=== PATIENT | male | born 1980 | race Caucasian/White ===

== ENCOUNTER 2024-10-11 11:18 | Inpatient (IN) | payer OTHER ==
[~2024-10-11] VITALS: Ht 180.3 cm; Wt 122.7 kg
[2024-10-11] VITALS (7 sets, daily range): BP systolic 136–151; BP diastolic 91–99; PULSE 93–105; RESP 17–18; TEMP 98.5–98.9; O2SAT 96–99
[2024-10-11] MEDS: LACTATED RINGERS 1000ML 1,000 ML IV ONE (11:53)
[2024-10-11 12:25] LABS: IMMATURE GRANULOCYTE ABSOLUTE 0.03 K/uL (0-1); NUCLEATED RED BLOOD CELLS 0.0 % (0.0-0.19); PLATELET COUNT (AUTO) 277 K/uL (130-400); RED BLOOD CELL COUNT(AUTO) 5.35 MIL/uL (4.50-6.20); RED CELL DISTRIBUTION WIDTH 12.6 % (11.0-15.5); WHITE BLOOD COUNT (AUTO) 8.4 K/uL (4.8-10.8)
[2024-10-11 12:31] LABS: CREATININE 1.0 mg/dL (0.5-1.3); GLOMERULAR FILTR. RATE CALC 95 mL/min (>90); GLUCOSE,RANDOM 109 mg/dL (70-105); SODIUM SERUM 137 mmol/L (136-145); UREA NITROGEN, BLOOD 18 mg/dL (7-18)
[2024-10-11 12:33] LABS: INR 0.97 (0.85-1.15)
--- NOTE | 2024-10-11 12:38 | HMCIMG ---
EXAM: CR Chest, 1 View. CLINICAL HISTORY: SYNCOPE COMPARISON: None provided. FINDINGS: LUNGS: The lungs show no infiltrate or other acute finding. PLEURAL SPACES: No evidence of pleural effusion or pneumothorax. MEDIASTINUM: The heart is enlarged. BONES: No acute osseous abnormality. IMPRESSION: Cardiomegaly. Clear lungs. /[place]
[2024-10-11 12:48] LABS: ALCOHOL, BLOOD < 3 mg/dL (0-10)
[2024-10-11 12:49] LABS: CREATINE KINASE, TOTAL 743 U/L (21-232)
--- NOTE | 2024-10-11 12:59 | HMCIMG ---
EXAM: CT Head Without IV contrast. CLINICAL HISTORY: dizzy/syncope TECHNIQUE: Axial computed tomography images of the head/brain without intravenous contrast. COMPARISON: None provided. FINDINGS: BRAIN: No evidence of acute hemorrhage. No mass lesion. No CT evidence for acute territorial infarct. No midline shift or extra-axial collections. VENTRICLES: No hydrocephalus. ORBITS: The orbits are unremarkable. SINUSES AND MASTOIDS: The paranasal sinuses and mastoid air cells are clear. BONES: No fracture. SOFT TISSUES: Unremarkable. IMPRESSION: 1. No acute intracranial findings. /[place]
[2024-10-11 13:07] LABS: APPEARANCE,URINE CLEAR (CLEAR); GLUCOSE, URINE (UA) NEGATIVE (NEGATIVE); LEUKOCYTE ESTERASE ,URINE NEGATIVE Leu/uL (NEGATIVE); NITRATE,URINE NEGATIVE (NEGATIVE); OCCULT BLOOD,URINE NEGATIVE (NEGATIVE)
[2024-10-11 13:09] LABS: ADD UA MICROSCOPIC NO
[2024-10-11 13:14] LABS: AMPHET/METH SCREEN,URINE NEGATIVE (NEGATIVE); BARBITURATE SCREEN, URINE NEGATIVE (NEGATIVE); CANNABINOID SCREEN,URINE NEGATIVE (NEGATIVE); COCAINE SCREEN,URINE NEGATIVE (NEGATIVE)
[2024-10-11] MEDS: LACTATED RINGERS 1000ML IV ONE (13:22)
--- NOTE | 2024-10-11 13:31 | ERN ---
General Chief Complaint: Syncope Stated Complaint: SYNCOPE X2 Time Seen by MD: 11:19 History of Present Illness Initial Comments 44-year-old male, history of anxiety, who presents for syncopal episode today. Patient was at home cooking breakfast. He was sitting in the chair. He reports that he had a syncopal episode which was unprovoked lasted about 15 seconds. He reports that he thinks he had a 2nd one as well. He had no falls or trauma. Did not bite his tongue. He denies seizure activity. Denies incontinence. He denies any palpitations or cardiac symptoms prior. Denies any drug or alcohol abuse. He reports he has never had syncopal episodes before. He does report that over the last year so he has had left-sided face pain, left retro-orbital pain and left ear tingling. He had a CT maxillofacial with his primary provider and was told he had sinusitis. He has been using a Neti pot and taking decongestants and antibiotics. He is pending an evaluation by Neurology and ENT. He is unsure if these are related. Allergies: Coded Allergies: iodine (Unverified Allergy, Intermediate, HIVES, 10/11/24) metoclopramide (Unverified Allergy, Intermediate, RASH, 10/11/24) Home Meds Reported Medications Lisinopril (Lisinopril) 20 Mg Tablet, 1.5 TAB PO DAILY for 30 Days, #30 TAB 0 Refills 10/11/24 Past Medical History Past Medical History: Hypertension, Other Medical History Other: ASCITES Past Surgical History: Other ROS Dictation CONSTITUTIONAL: No chills, no fever, no weakness, no diaphoresis, no malaise. HEAD/FACE: No signs of trauma. EENT: No eye pain, no blurred vision, no tearing, no double vision, no ear pain, no ear discharge, no nose pain, no nasal congestion, no throat pain, no throat swelling, no mouth pain. RESPIRATORY: No cough, no orthopnea, no SOB, no stridor, no wheezing. CARDIOVASCULAR: Syncope GASTROINTESTINAL/ABDOMINAL: No abdominal pain, no constipation, no diarrhea, no nausea, no vomiting. GENITOURINARY: No abnormal discharge, no dysuria, no frequent urination, no hematuria. No complaints of pain in the genitals. MUSCULOSKELETAL: No back pain, no gout, no joint pain, no joint swelling, no muscle pain, no muscle stiffness, no neck pain. INTEGUMENTARY: No change in color, no change in hair/nails, no dryness, no lesion, no lumps, no rash. NEUROLOGICAL/PSYCH: No anxiety, not depressed, no emotional problem, no headache, no numbness, no pre-existing deficit, no history of seizures, no tremors, no weakness. HEMATOLOGIC/LYMPHATIC: Not anemic, no history of blood clots, no apparent bleeding, no bruising, glands not swollen. All Systems Negative, Except as Noted. Physical Exam Physical Exam Dictation VITAL SIGNS: Reviewed. GENERAL APPEARANCE: Alert, oriented x3, no acute distress, obese. HEAD AND FACE: Non-traumatic. EYES: PERRL, pink conjunctivas, eyelid no trauma, anterior chamber clear. EARS: Pinnas intact and no signs of trauma or erythema. Ear canals clear and no discharge. TMs no erythema. NOSE: No discharge, no bleeding. OROPHARYNX: Mouth normal, teeth no caries, tongue pink. Pharynx clear, no erythema. Tonsils no exudates, no abscesses noted. Mucous membrane moist. NECK: Supple, non-tender, no thyromegaly, no masses, no JVD, no bruits. BREAST: Deferred. CHEST: No tenderness, no crepitus, no paradoxical movement, no retractions. LUNGS: Clear, well-ventilated, symmetric, no rales, no wheezing, no rhonchi, no stridor, good breath sounds bilaterally. HEART: Regular rate, regular rhythm, no murmur, no gallops. VASCULAR: No peripheral edema. ABDOMEN: Soft, positive bowel sounds, nondistended, no guarding, nontender, no rebound, no masses no hepatomegaly, no splenomegaly, no Ridley's sign, no hernias. RECTAL: Deferred. GENITAL: Deferred. NEUROLOGICAL: Normal speech, gross motor function intact, gross sensory function intact. MUSCULOSKELETAL: Neck nontender, full range of motion, back nontender, full range of motion. EXTREMITIES: Nontender, full range of motion. SKIN: Color pink, dry, no turgor, no rash, no lacerations, no abrasions, no contusions. LYMPHATICS: Deferred. Results Laboratory and Microbiology Lab and Micro Result Laboratory Tests Test 10/11/24 12:13 10/11/24 12:52 White Blood Count 8.4 K/uL (4.8-10.8) Red Blood Count 5.35 MIL/uL (4.50-6.20) Hemoglobin 15.8 g/dL (14.0-18.0) Hematocrit 47.3 % (42-54) Mean Corpuscular Volume 88.4 fL (79-99) Mean Corpuscular Hemoglobin 29.5 pg (27.0-33.0) Mean Corpuscular Hemoglobin Concent 33.4 g/dL (32.0-36.0) Red Cell Distribution Width 12.6 % (11.0-15.5) Platelet Count 277 K/uL (130-400) Mean Platelet Volume 10.1 fL (7.5-10.5) Immature Granulocyte % (Auto) 0.4 % (0-1) Neutrophils (%) (Auto) 78.1 % (40.0-77.0) H Lymphocytes (%) (Auto) 11.9 % (21.0-51.0) L Monocytes (%) (Auto) 7.8 % (3.0-13.0) Eosinophils (%) (Auto) 1.4 % (0.0-8.0) Basophils (%) (Auto) 0.4 % (0.0-5.0) Neutrophils # (Auto) 6.6 K/uL (1.8-7.7) Lymphocytes # (Auto) 1.0 K/uL (1.0-4.8) Monocytes # (Auto) 0.7 K/uL (0.1-1.0) Eosinophils # (Auto) 0.12 K/uL (0.00-0.70) Basophils # (Auto) 0.03 K/uL (0.00-0.20) Absolute Immature Granulocyte (auto 0.03 K/uL (0-1) Nucleated Red Blood Cells 0.0 % (0.0-0.19) Erythrocyte Sedimentation Rate 8 MM/HR (0-15) Prothrombin Time 10.3 SEC (9.6-11.6) Prothromb Time International Ratio 0.97 (0.85-1.15) Activated Partial Thromboplast Time 28.2 SEC (26.3-35.5) D-Dimer Quantitative (PE/DVT) 158 ng/mL (0-500) Sodium Level 137 mmol/L (136-145) Potassium Level 4.4 mmol/L (3.5-5.1) Chloride Level 102 mmol/L (101-111) Carbon Dioxide Level 28 mmol/L (21-32) Blood Urea Nitrogen 18 mg/dL (7-18) Creatinine 1.0 mg/dL (0.5-1.3) Glomerular Filtration Rate Calc 95 mL/min (>90) Random Glucose 109 mg/dL (70-105) H Hemoglobin A1c 5.5 % (4.0-6.0) Estimated Average Glucose (eAG) 111 mg/dL (70-126) Total Calcium 8.4 mg/dL (8.5-10.1) L Magnesium Level 1.80 mg/dL (1.80-2.40) Total Bilirubin 0.6 mg/dL (0.2-1.0) Direct Bilirubin 0.1 mg/dL (0.0-0.3) Aspartate Amino Transf (AST/SGOT) 23 U/L (10-37) Alanine Aminotransferase (ALT/SGPT) 53 U/L (12-78) Alkaline Phosphatase 60 U/L (50-136) Lactate Dehydrogenase 189 U/L (81-234) Total Creatine Kinase 743 U/L (21-232) *H Troponin I High Sensitivity < 4.0 ng/L (4-75) L C-Reactive Protein, Quantitative 5.70 mg/L (0.5-3.0) H B-Type Natriuretic Peptide < 5 pg/mL (0-100) Total Protein 6.9 g/dL (6.0-8.3) Albumin 3.5 g/dL (3.5-5.0) Thyroid Stimulating Hormone (TSH) 0.94 uIU/mL (0.36-3.74) Serum Alcohol < 3 mg/dL (0-10) Urine Color LIGHT-YELLOW (YELLOW) Urine Appearance CLEAR (CLEAR) Urine pH 7.0 (5.0-8.0) Urine Specific [place] 1.024 (1.001-1.031) Urine Protein NEGATIVE mg/dL (NEGATIVE) Urine Glucose (UA) NEGATIVE mg/dL (NEGATIVE) Urine Ketones NEGATIVE mg/dL (NEGATIVE) Urine Occult Blood NEGATIVE (NEGATIVE) Urine Nitrate NEGATIVE (NEGATIVE) Urine Bilirubin NEGATIVE mg/dL (NEGATIVE) Urine Urobilinogen 0.2 mg/dL (0.2-1.0) Urine Leukocyte Esterase NEGATIVE [place]/uL Urine Opiates Screen NEGATIVE (NEGATIVE) Urine Barbiturates Screen NEGATIVE (NEGATIVE) Urine Phencyclidine Screen NEGATIVE (NEGATIVE) Urine Amphetamines Screen NEGATIVE (NEGATIVE) Urine Benzodiazepines Screen NEGATIVE (NEGATIVE) Urine Cocaine Screen NEGATIVE (NEGATIVE) Urine Marijuana (THC) Screen NEGATIVE (NEGATIVE) MDM CC: Syncopal episode Historian: Patient Comorbidities: Anxiety Limitations by social determinants of health: None Differential diagnosis: Cardiac syncope arrhythmia, vasovagal syncope, dehydration, he has had some tinnitus and left-sided face pain, we will get imaging of the head to ensure there was no tumors or other major abnormalities in the brain. Vital signs: Tachycardia heart rate 105, otherwise vital signs stable NIHSS of 0. Cardiac exam is normal. EKG: Sinus rhythm, rate 94, normal axis, good R-wave progression, intervals are stable no STEMI. CXR shows cardiomegally, no vascular congestion Labs CBC, coags, D-dimer, urinalysis, tox screen, alcohol level are all normal. Chemistry shows stable electrolytes the CK is mildly elevated 743, troponin is otherwise unremarkable. CT head is unremarkable. All labs and imaging interpreted by me Patient does not appear to be a high-risk syncope. He had two separate events with no prodrome. He also has a enlarged heart/cardiomegaly on chest x-ray. Patient would benefit from a telemetry monitoring, echocardiogram and further observation. Patient agrees with this. Patient received IV fluids here in the ER. Hospitalist consulted for admission. ED Course Orders Procedure Category Date Status Time Lactated Ringers PHA 10/11/24 Complete 1000ml (Lactated 11:30 Alcohol, Blood LAB 10/11/24 Complete 11:28 Cardiac Panel LAB 10/11/24 Complete 11:28 Cbc With Differential LAB 10/11/24 Complete 11:28 Basic Metabolic Panel LAB 10/11/24 Complete 11:28 D-Dimer LAB 10/11/24 Complete 11:28 Magnesium LAB 10/11/24 Complete 11:28 Prothrombin Time With LAB 10/11/24 Complete INR 11:28 Partial LAB 10/11/24 Complete Thromboplastin Time 11:28 Urinalysis Profile LAB 10/11/24 Complete 11:28 Chest 1vw RAD 10/11/24 Resulted 11:28 Ct Head/Brain W/O CT 10/11/24 Resulted Contrast 11:28 12 Lead Ekg Tracing- EKG 10/11/24 Resulted Technical 11:28 Drug Screen Urine LAB 10/11/24 Complete 11:28 B-Type Natriuretic LAB 10/11/24 Complete Peptide 12:50 Lactated Ringers PHA 10/11/24 Complete 1000ml (Lactated 13:00 Current Medications Medications (Trade) Dose Ordered Sig/Alejandro Route PRN Reason Start Time Stop Time Status Last Admin Dose Admin Lactated Ringer's 1,000 ml @ 0 mls/hr ONCE ONCE IV 10/11/24 11:30 10/11/24 11:34 DC 10/11/24 11:53 Lactated Ringer's (Lactated Ringers 1000ml) 1,000 ml BOLUS ONCE IV 10/11/24 13:00 10/11/24 13:04 DC 10/11/24 13:22 Vital Signs Date Time Temp Pulse Resp B/P (MAP) Pulse Ox O2 Delivery O2 Flow Rate FiO2 10/11/24 13:00 75 20 145/83 98 Room Air* 0 21 10/11/24 11:35 87 20 150/98 98 Room Air* 0 10/11/24 11:19 98.4 105 19 129/61 99 Room Air 0 DX & DISP Disposition: Inpatient Departure Impression: Primary Impression: Syncope and collapse Additional Impression: Cardiomegaly Condition: Stable Referrals: SELF,REFERRAL (PCP) TIFFANIE FIGUEROA DO Oct 11, 2024 13:31
--- NOTE | 2024-10-11 14:05 | EKG ---
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
[2024-10-11 14:42] LABS: ASPARTATE AMINOTRANSFERASE 23.0 U/L (10-37); LACTATE DEHYDROGENASE 189.0 U/L (81-234); TOTAL PROTEIN, SERUM 6.9 g/dL (6.0-8.3)
--- NOTE | 2024-10-11 15:01 | CONS ---
[facility] Cardiology Consultation Note CARDIOLOGY CONSULTATION OCTOBER 11, 2024 Chief complaint: This is a 44-year-old male presents with syncope. History of present illness: The patient has been experiencing vertigo was recently treated with amoxicillin and steroids for possible sinusitis. Does not feel that this is made much difference. He has a appointment to see an ENT doctor. He is also noticed some progressive weakness and some shortness of breath with exertion. He has a wheelchair at home and typically sits in this or uses at to help with his balance. Today he was cooking breakfast in the chair and felt onset of dizziness. This resulted in abrupt syncope. He thinks he was only out for about 15 seconds. When he awoke his phone was on the floor. Did not suffer any bodily injury. About 10 minutes later he had a 2nd spell. Was no associated chest pain shortness of breath or palpitations. Electrocardiogram showed sinus rhythm with a normal tracing. Laboratory studies were remarkable for a CK of 743. Troponin was normal at less than four with a BNP level of less than five. Past medical history: He has a history of hypertension in his noted was recently treated for possible sinusitis. There was no history of rheumatic fever heart murmur previous myocardial infarction CVAs ulcers phlebitis thyroid disease diabetes dyslipidemia kidney or liver disease. Review of systems: No PND orthopnea palpitations or edema. No fevers sweats or chills. No hemoptysis hematemesis or melena. Allergies: No known allergies Surgical history: Previous surgery on his humerus Social history: He quit vaping about three weeks ago. 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 Family history: He does not know his father's history. Mother had hypertension and of metastatic cancer. Physical exam: He has no nystagmus on lateral gaze today. Blood pressure is running one 30-150 systolic. Heart rate is in the 70s and the patient is afebr ile. There was no elevation of the jugular venous pressure no bruits S1 normal S2 physiologically split. No murmur appreciable. No murmur was elicited with Valsalva maneuver forced expiration. Abdomen is obese soft nontender. Extremities show no edema. He is alert and oriented. He has no calf tenderness. Laboratory studies: Potassium 4.4 BUN 18 creatinine 1.0 estimated GFR of 109. As noted is CK was 743. White count 8.4 hemoglobin 15.8 platelet count [id number]. Tox screen was negative with the exception of a minimal alcohol level. INR of 0.9. Urinalysis unremarkable. Head CT showed no acute pathology. Chest x-ray: This is a portable film nevertheless cardiomegaly appears to be present. No effusions or infiltrates are noted. There was no pneumothorax. Assessment: 1. Syncope with prodrome of dizziness. 2. Dyspnea on exertion with cardiomegaly and history of hypertension rule out diastolic left ventricular dysfunction 3. Hypertension 4. Elevated CK possibly rhabdomyolysis but given his generalized weakness it may need to consider polymyositis. Plan: Plan is to check orthostatic vital signs. We will check a sedimentation rate and CRP levels. We will repeat a CK in the morning to see if it is coming down. TSH level will be checked. 2D echocardiogram is scheduled and I will review this when available. We will monitor on telemetry. If no etiology is found we will consider outpatient monitoring for two weeks. SANG AMARAL MD Oct 11, 2024 15:01
[2024-10-11] MEDS: LACTATED RINGERS 1000ML 1,000 ML IV SCH (15:20)
[2024-10-11] MEDS ORDERED: LISI20TA24 PO (15:21)
--- NOTE | 2024-10-11 15:29 | HP ---
[facility] HISTORY [facility] PHYSICAL Date of Service: Oct 11, 2024 Time of Service: 15:20 HISTORY OF PRESENT ILLNESS: Date of service: 10/11/2024, patient was seen in ER room 11 44-year-old male with underlying history of hypertension, history of chronic vertigo which has ongoing for the past two months, who presented to the ER for further evaluation of suspected syncope. Patient states that he was in the kitchen in sitting on his wheelchair when he felt little bit of nausea and palpitations which has followed by syncopal episode. Patient states that he may have had the episode for about 15 seconds. When he woke up, he found his phone on the floor, about 10 minutes later, he had another episode of syncope. Patient denies previous syncopal episode. denies any previous history of cardiac arrhythmia or SD. Patient reports that he has been having issues with chronic vertiginous symptoms for the past two months. He follows up with a neurologist in [place] and is supposed to have a EEG done as outpatient. Recently had a CT maxillofacial done and was told he had sinusitis. He was prescribed a course of Medrol Dosepak as well as Augmentin. The neurologist also thought that he may have possible vestibular migraine/ocular migraine. He has history of pressure involving the left eye for several months now. He is supposed to see ENT as outpatient with Dr. Donald Rowell. Patient has noticed that over the last two months, we will gets tired easily with exertional activities, he has noticed some subjective weakness of the lower extremity as well. He is undergoing outpatient neurologic workup. He is also supposed to have a sleep to rule out obstructive sleep apnea. He reports having dyspnea on exertion. On presentation to the hospital, patient was noted to be afebrile with T-max of 98.4 F, heart rate of 105, blood pressure of 129/61. Labs on presentation showed WBC count to be 1400, hemoglobin 15.8, platelet co unt of [id number]. BMP remarkable for sodium 137, potassium 4.4, BUN of 18, creatinine 1.0, total CK was noted to be mildly high at 743 and liver enzymes were noted to be normal. Chest x-ray Showed no acute infiltrates with possible cardiomegaly. Patient will be admitted for further evaluation of syncopal episode. Patient will undergo further cardiac workup and patient's case was discussed with Dr. Collier with Cardiology. We will obtain a 2D echocardiogram, we will check a TSH, ENRICO panel w/ reflex profile. We will see how patient progresses in the next 24- 48 hours, and we will rule out any malignant arrhythmia under telemetry nathan molina. Patient to keep close outpatient follow up with Neurology and ENT as well. REVIEW OF SYSTEMS CONSTITUTIONAL: Denies fevers, chills, or night sweats. No unintentional weight loss reported. NEUROLOGICAL: Denies headache, amaurosis fugax, motor weakness, sensory deficit, vertigo/spinning sensation, gait abnormalities, or tremors. ENT: No hearing loss, otalgia, otorrhea, rhinitis, rhinorrhea, hoarseness, or s ore throat. CARDIOVASCULAR: Syncopal episode x 2 today PULMONARY: Denies any shortness of breath, cough, phlegm/sputum, hemoptysis, pleuritic chest pain. SLEEP: Denies morning headaches, daytime somnolence or napping. Denies difficulty falling asleep, staying asleep, waking from sleep. Denies knowledge of snoring. GASTROINTESTINAL: Denies any type of dysphagia to either liquids or solids. Denies nausea, vomiting, pyrosis, early satiety, abdominal pain, diarrhea, constipation, or changes in stool consistency or caliber. Denies coffee-ground emesis, hematemesis, hematochezia, or melanotic stools. GENITOURINARY: Denies frequency, urgency, nocturia, hematuria or incontinence (Storage/Irritative symptoms.) Low urinary stream, straining to void, urinary intermittency or hesitancy, splitting of the voiding stream, terminal dribbling. ENDOCRINOLOGIC: Denies polyuria, polydipsia, polyphagia or heat/cold intolerances. HEMATOLOGIC: Denies thrombophilia/previous clots, or coagulopathy/bleeding disorders. ONCOLOGIC: Denies personal history of malignancy. DERMATOLOGIC: Denies rashes or pruritus. PSYCHIATRIC: Denies any suicidal or homicidal ideation. Denies hallucinations. PAST MEDICAL HISTORY: Hypertension PAST SURGICAL HISTORY: Reports having history of surgery to the left humerus due to prior fracture PAST SOCIAL HISTORY: Used to be a previous smoker and quit smoking five years ago, has been vaping almost every day and quit three weeks ago, denies any alcohol or illicit drug use FAMILY HISTORY: Mother had cancer and was a heavy smoker Coded Allergies: iodine (Unverified Allergy, Intermediate, HIVES, 10/11/24) metoclopramide (Unverified Allergy, Intermediate, RASH, 10/11/24) PHYSICAL EXAM GENERAL APPEARANCE: The patient is awake, alert, and oriented, in no acute cardiopulmonary distress. NEUROLOGICAL: Cranial nerves II-XII grossly intact. Motor is 5/5 in bilateral upper and lower extremities proximal to distal. No objective weakness noted of bilateral lower extremities HEENT: Face is symmetric. Pupils are equal and reactive. Extraocular movements are intact. NECK: Supple. No JVD. No thyromegaly. No submental, submandibular, pre- /postauricular, occipital or supraclavicular lymphadenopathy. CHEST: Normal chest expansion. No Telemetry. LUNGS: Absence of any rales, rhonchi or any wheezing. CARDIOVASCULAR: Regular. S1 and S2 normal. No appreciable rubs, murmurs or gallops. ABDOMEN: Soft, nontender, and nondistended. There is no rebound, voluntary guarding, or rigidity. : Deferred. No [place]. EXTREMITIES: Non-edematous and not cyanotic. No clubbing. Good capillary refill. SKIN: No skin breakdown. Vital Sign (Last 24 Hours) 10/11/24 10/11/24 10/11/24 11:19 13:00 14:50 Temp 98.4 Pulse 75 Resp 18 B/P (MAP) 145/83 Pulse Ox 98 O2 Delivery N/A Room Air O2 Flow Rate 0 FiO2 21 LABS: Laboratory: Test 10/11/24 12:52 10/11/24 12:13 Range/Units Urine Color LIGHT-YELLOW YELLOW Urine Appearance CLEAR CLEAR Urine pH 7.0 5.0-8.0 Urine Specific [place] 1.024 1.001-1.031 Urine Protein NEGATIVE NEGATIVE mg/dL Urine Glucose (UA) NEGATIVE NEGATIVE mg/dL Urine Ketones NEGATIVE NEGATIVE mg/dL Urine Occult Blood NEGATIVE NEGATIVE Urine Nitrate NEGATIVE NEGATIVE Urine Bilirubin NEGATIVE NEGATIVE mg/dL Urine Urobilinogen 0.2 0.2-1.0 mg/dL Urine Leukocyte Esterase NEGATIVE NEGATIVE Hermelindo/uL Urine Opiates Screen NEGATIVE NEGATIVE Urine Barbiturates Screen NEGATIVE NEGATIVE Urine Phencyclidine Screen NEGATIVE NEGATIVE Urine Amphetamines Screen NEGATIVE NEGATIVE Urine Benzodiazepines Screen NEGATIVE NEGATIVE Urine Cocaine Screen NEGATIVE NEGATIVE Urine Marijuana (THC) Screen NEGATIVE NEGATIVE White Blood Count 8.4 4.8-10.8 K/uL Red Blood Count 5.35 4.50-6.20 MIL/uL Hemoglobin 15.8 14.0-18.0 g/dL Hematocrit 47.3 42-54 % Mean Corpuscular Volume 88.4 79-99 fL Mean Corpuscular Hemoglobin 29.5 27.0-33.0 pg Mean Corpuscular Hemoglobin Concent 33.4 32.0-36.0 g/dL Red Cell Distribution Width 12.6 11.0-15.5 % Platelet Count 277 130-400 K/uL Mean Platelet Volume 10.1 7.5-10.5 fL Immature Granulocyte % (Auto) 0.4 0-1 % Neutrophils (%) (Auto) 78.1 H 40.0-77.0 % Lymphocytes (%) (Auto) 11.9 L 21.0-51.0 % Monocytes (%) (Auto) 7.8 3.0-13.0 % Eosinophils (%) (Auto) 1.4 0.0-8.0 % Basophils (%) (Auto) 0.4 0.0-5.0 % Neutrophils # (Auto) 6.6 1.8-7.7 K/uL Lymphocytes # (Auto) 1.0 1.0-4.8 K/uL Monocytes # (Auto) 0.7 0.1-1.0 K/uL Eosinophils # (Auto) 0.12 0.00-0.70 K/uL Basophils # (Auto) 0.03 0.00-0.20 K/uL Absolute Immature Granulocyte (auto 0.03 0-1 K/uL Nucleated Red Blood Cells 0.0 0.0-0.19 % Prothrombin Time 10.3 9.6-11.6 SEC Prothromb Time International Ratio 0.97 0.85-1.15 Activated Partial Thromboplast Time 28.2 26.3-35.5 SEC D-Dimer Quantitative (PE/DVT) 158 0-500 ng/mL Sodium Level 137 136-145 mmol/L Potassium Level 4.4 3.5-5.1 mmol/L Chloride Level 102 101-111 mmol/L Carbon Dioxide Level 28 21-32 mmol/L Blood Urea Nitrogen 18 7-18 mg/dL Creatinine 1.0 0.5-1.3 mg/dL Glomerular Filtration Rate Calc 95 >90 mL/min Random Glucose 109 H 70-105 mg/dL Hemoglobin A1c 5.5 4.0-6.0 % Estimated Average Glucose (eAG) 111 70-126 mg/dL Total Calcium 8.4 L 8.5-10.1 mg/dL Magnesium Level 1.80 1.80-2.40 mg/dL Total Bilirubin 0.6 0.2-1.0 mg/dL Direct Bilirubin 0.1 0.0-0.3 mg/dL Aspartate Amino Transf (AST/SGOT) 23 10-37 U/L Alanine Aminotransferase (ALT/SGPT) 53 12-78 U/L Alkaline Phosphatase 60 50-136 U/L Lactate Dehydrogenase 189 81-234 U/L Total Creatine Kinase 743 *H 21-232 U/L Troponin I High Sensitivity < 4.0 L 4-75 ng/L C-Reactive Protein, Quantitative 6.00 H 0.5-3.0 mg/L B-Type Natriuretic Peptide < 5 0-100 pg/mL Total Protein 6.9 6.0-8.3 g/dL Albumin 3.5 3.5-5.0 g/dL Thyroid Stimulating Hormone (TSH) 0.94 0.36-3.74 uIU/mL Serum Alcohol < 3 0-10 mg/dL Current Medications Medications (Trade) Dose Ordered Sig/Alejandro Route PRN Reason Start Time Stop Time Status Last Admin Dose Admin Acetaminophen (TYLenol 325MG TAB) 650 mg Q6H PRN PO MILD PAIN (1-3) 10/11/24 14:30 11/10/24 14:29 Albuterol (DUOneb) 1 udvial Q6H PRN IH SHORTNESS OF BREATH 10/11/24 14:30 11/10/24 14:29 Labetalol HCl (TRANdate 20MG SYG) 10 mg Q6H PRN IV for SBP> 170 10/11/24 14:30 11/10/24 14:29 Lactated Ringer's 1,000 ml @ 70 mls/hr [id number] IV 10/11/24 14:30 11/10/24 14:29 Lisinopril (Prinivil 10mg) 10 mg DAILY PO 10/12/24 09:00 11/11/24 08:59 Lisinopril (Prinivil 20mg) 20 mg DAILY PO 10/12/24 09:00 11/11/24 08:59 Ondansetron HCl (zoFRAN 4MG INJ) 4 mg Q6H PRN IVP NAUSEA/VOMITING 10/11/24 14:30 11/10/24 14:29 DIAGNOSTICS / RADIOLOGY: SERVICE 27 REASON: dizzy/syncope ORDERING PHYSICIAN: TIFFANIE FIGUEROA DO PROCEDURE: HEAD WO - CT HEAD/BRAIN W/O CONTRAST EXAM: CT Head Without IV contrast. CLINICAL HISTORY: dizzy/syncope TECHNIQUE: Axial computed tomography images of the head/brain without intravenous contrast. COMPARISON: None provided. FINDINGS: BRAIN: No evidence of acute hemorrhage. No mass lesion. No CT evidence for acute territorial infarct. No midline shift or extra-axial collections. VENTRICLES: No hydrocephalus. ORBITS: The orbits are unremarkable. SINUSES AND MASTOIDS: The paranasal sinuses and mastoid air cells are clear. BONES: No fracture. SOFT TISSUES: Unremarkable. IMPRESSION: 1. No acute intracranial findings. /[place] DICTATED BY: MAURA ADAMS MD DATE: 10/11/241358 ELECTRONICALLY SIGNED BY: MAURA ADAMS MD DATE: 10/11/24 135 SERVICE 27 REASON: SYNCOPE ORDERING PHYSICIAN: TIFFANIE FIGUEROA DO PROCEDURE: CXR1VW - CHEST 1VW EXAM: CR Chest, 1 View. CLINICAL HISTORY: SYNCOPE COMPARISON: None provided. FINDINGS: LUNGS: The lungs show no infiltrate or other acute finding. PLEURAL SPACES: No evidence of pleural effusion or pneumothorax. MEDIASTINUM: The heart is enlarged. BONES: No acute osseous abnormality. IMPRESSION: Cardiomegaly. Clear lungs. /[place] DICTATED BY: MAURA ADAMS MD DATE: 10/11/241337 ELECTRONICALLY SIGNED BY: MAURA ADAMS MD DATE: 10/11/241337 ASSESSMENT: Syncopal episode x2, POA Rule out heart failure, POA History of hypertension, POA Rhabdomyolysis, mild, POA History of chronic vertigo being evaluated by ENT and Neurology as outpatient, POA Recent history of sinusitis treated with outpatient course of steroids and antibiotics, POA Deconditioning, POA Obesity, POA PLAN: Patient will be admitted to medical-surgical floor under telemetry monitoring We will obtain a 2D echocardiogram to assess LVF and rule out systolic/diastolic heart failure Patient will be kept on telemetry monitoring Appreciate recommendations by Dr. Velasco's with Cardiology We will keep patient on gentle hydration with LR at 70 mL/hour We will obtain autoimmune serologies including ENRICO, Anti Jo1 antibody to assess for any myositis, with TSH panel as well We will follow up orthostatic vitals, orthostatic vitals are negative, we will continue with home dose of lisinopril 30 mg with the management of hypertension We will obtain physical therapy evaluation for the morning Discussed with patient to keep close outpatient follow up with Neurology and ENT as outpatient, we will check a prolactin level as well to ensure there was no concerns for seizure during the syncopal episode All labs will be repeated in the morning Anticipate hospitalization for at least 24-48 hours, We will keep patient on GI prophylaxis with Pepcid, DVT prophylaxis with Lovenox Date of service: 10/11/2024 Plan of care was discussed with patient at bedside, Tarun Mendenhall MD Advanced Care Planning: Which of the following were discussed: Hospice care: Yes __ No _X_ Therapeutic options: Yes _X_ No __ Advance directives: Yes _X_ No __ Other discussions: Discussed with who?: Patient Voluntary nature of this service was explained to the patient? Yes _x_ No __ Amount of time spent: 20 minutes TARUN MENDENHALL MD Oct 11, 2024 15:29
--- NOTE | 2024-10-11 16:05 | NUR ---
GAVE REPORT TO JIAN MOE, PATIENT WAS TRANSFERRED TO ROOM #405, WAS TRANSPORTED VIA WHEELCHAIR WITH ALL HIS BELONGINGS.
[2024-10-11 22:22] LABS: SARS-CoV-2, RNA, NAAT NEGATIVE SARS CoV-2 (NEGATIVE)
[2024-10-11 22:30] LABS: INFLUENZA TYPE A Negative For Type A (NEGATIVE); INFLUENZA TYPE B Negative For Type B (NEGATIVE)
[2024-10-12] VITALS (10 sets, daily range): BP systolic 122–163; BP diastolic 72–115; PULSE 18–91; RESP 15–20; TEMP 98.1–99.3; O2SAT 96–98
[2024-10-12 03:45] LABS: IMMATURE GRANULOCYTE ABSOLUTE 0.04 K/uL (0-1); NUCLEATED RED BLOOD CELLS 0.0 % (0.0-0.19); PLATELET COUNT (AUTO) 212 K/uL (130-400); RED BLOOD CELL COUNT(AUTO) 5.10 MIL/uL (4.50-6.20); RED CELL DISTRIBUTION WIDTH 12.4 % (11.0-15.5); WHITE BLOOD COUNT (AUTO) 7.7 K/uL (4.8-10.8)
[2024-10-12 04:21] LABS: CREATININE 0.9 mg/dL (0.5-1.3); GLOMERULAR FILTR. RATE CALC 108.0 mL/min (>90); GLUCOSE,RANDOM 97.0 mg/dL (70-105); SODIUM SERUM 136.0 mmol/L (136-145); UREA NITROGEN, BLOOD 14.0 mg/dL (7-18)
[2024-10-12 04:23] LABS: CREATINE KINASE, TOTAL 871.0 U/L (21-232)
--- NOTE | 2024-10-12 08:58 | PN ---
[facility] CARDIOLOGY PROGRESS NOTE Date Patient Seen: Oct 12, 2024 Time of Visit: 08:46 Interval History: This is a 44 year old with a past medical history of hypertension who has been experiencing recent vertigo symptoms described as a sensation of brain fog, headaches. He was recently treated with amoxicillin and steroids for possible sinusitis and has been referred for ENT assessment which is scheduled for October. He has also noted progressive weakness and dyspnea with exertion. He has been sitting in a wheelchair recently at home for safety, in the event he gets up and feels a sensation of falling. He uses the wheelchair also for balance. He presented to the hospital after he had 2 syncopal episodes while cooking in his chair. He felt the onset of dizziness and diaphoresis and resulted in abrupt syncope. He thinks he was only out for about 15 seconds. When he awoke his phone was on the floor. Denied any bodily injury. About 10 minutes later he had a 2nd spell. There was no associated chest pain, or palpitations. His EKG on admission demonstrated a normal sinus rhythm and no acute findings. Laborator y studies were remarkable for a CK of 743. Troponin was normal at less than four with a BNP level of less than five. A repeat CK this morning was 871, CRP was elevated at 6 and his ESR was normal at 8. There was no evidence of orthostatic hypotension and typically take lisinopril 30 mg p.o. daily. His telemetry has demonstrated a normal sinus rhythm with a heart rate of 78-96 beats per minute and no arrhythmias identified. He is pending a 2D echocardiogram. This morning he continues to feel as if he is in a fog are also described as motions of waves (as if after you have shaking a fish bowl and the waves persist). Physical Examination: GENERAL: No acute distress. HEAD: Normal with no signs of head trauma. EYES: PERRLA, EOMI, conjunctiva and sclera normal. NECK: Supple without JVD. There is no tenderness, lymphadenopathy, or masses. No thyromegaly. Normal carotid upstrokes without bruits. LUNGS: Clear breath sounds bilaterally. No wheezes, or rhonchi. HEART: Normal rate and rhythm. Normal S1 and S2 without murmurs, gallop or rub. VASC: Peripheral pulses +2 bilaterally. EXT: No clubbing, cyanosis or edema. Multiple tattoos throughout NEURO: Awake, alert, and oriented x3. No focal neurological deficits noted. Laboratory: Hematology Labs: Test 10/12/24 03:05 10/11/24 12:13 Range/Units White Blood Count 7.7 4.8-10.8 K/uL Red Blood Count 5.10 4.50-6.20 MIL/uL Hemoglobin 15.0 14.0-18.0 g/dL Hematocrit 45.8 42-54 % Mean Corpuscular Volume 89.8 79-99 fL Mean Corpuscular Hemoglobin 29.4 27.0-33.0 pg Mean Corpuscular Hemoglobin Concent 32.8 32.0-36.0 g/dL Red Cell Distribution Width 12.4 11.0-15.5 % Platelet Count 212 130-400 K/uL Mean Platelet Volume 11.2 H 7.5-10.5 fL Immature Granulocyte % (Auto) 0.5 0-1 % Neutrophils (%) (Auto) 60.9 40.0-77.0 % Lymphocytes (%) (Auto) 28.1 21.0-51.0 % Monocytes (%) (Auto) 7.4 3.0-13.0 % Eosinophils (%) (Auto) 2.6 0.0-8.0 % Basophils (%) (Auto) 0.5 0.0-5.0 % Neutrophils # (Auto) 4.7 1.8-7.7 K/uL Lymphocytes # (Auto) 2.2 1.0-4.8 K/uL Monocytes # (Auto) 0.6 0.1-1.0 K/uL Eosinophils # (Auto) 0.20 0.00-0.70 K/uL Basophils # (Auto) 0.04 0.00-0.20 K/uL Absolute Immature Granulocyte (auto 0.04 0-1 K/uL Nucleated Red Blood Cells 0.0 0.0-0.19 % Erythrocyte Sedimentation Rate 8 0-15 MM/HR Chemistry Labs: Test 10/12/24 03:05 10/11/24 12:13 Range/Units Sodium Level 136 136-145 mmol/L Potassium Level 4.0 3.5-5.1 mmol/L Chloride Level 100 L 101-111 mmol/L Carbon Dioxide Level 28 21-32 mmol/L Blood Urea Nitrogen 14 7-18 mg/dL Creatinine 0.9 0.5-1.3 mg/dL Glomerular Filtration Rate Calc 108 >90 mL/min Random Glucose 97 70-105 mg/dL Total Calcium 8.6 8.5-10.1 mg/dL Total Creatine Kinase 871 *H 21-232 U/L Hemoglobin A1c 5.5 4.0-6.0 % Estimated Average Glucose (eAG) 111 70-126 mg/dL Magnesium Level 1.80 1.80-2.40 mg/dL Total Bilirubin 0.6 0.2-1.0 mg/dL Direct Bilirubin 0.1 0.0-0.3 mg/dL Aspartate Amino Transf (AST/SGOT) 23 10-37 U/L Alanine Aminotransferase (ALT/SGPT) 53 12-78 U/L Alkaline Phosphatase 60 50-136 U/L Lactate Dehydrogenase 189 81-234 U/L Troponin I High Sensitivity < 4.0 L 4-75 ng/L C-Reactive Protein, Quantitative 5.70 H 0.5-3.0 mg/L B-Type Natriuretic Peptide < 5 0-100 pg/mL Total Protein 6.9 6.0-8.3 g/dL Albumin 3.5 3.5-5.0 g/dL Thyroid Stimulating Hormone (TSH) 0.94 0.36-3.74 uIU/mL Coagulation Labs: Test 10/11/24 12:13 Range/Units Prothrombin Time 10.3 9.6-11.6 SEC Prothromb Time International Ratio 0.97 0.85-1.15 Activated Partial Thromboplast Time 28.2 26.3-35.5 SEC D-Dimer Quantitative (PE/DVT) 158 0-500 ng/mL Diagnostics / Radiology: 2D echocardiogram is pending Impression and Plan: Syncope with prodrome of dizziness: Vertigo: -recently treated with steroids and amoxicillin for sinusitis, without much improvement -no evidence of orthostatic hypotension -continue supportive care -if workup unremarkable, consider outpatient cardiac mobile telemetry monitoring and follow-up at [facility] Dyspnea on exertion with cardiomegaly Hypertension: -await results of 2D echocardiogram for evaluation of LVEF and assess for any diastolic left ventricular dysfunction Hypertension: -continue with his usual home lisinopril 30 mg p.o. daily -no evidence of orthostatic hypotension on orthostatic vital signs Elevated CK possibly rhabdomyolysis but given his generalized weakness it may need to consider polymyositis: -ESR normal at 8 -continue IV fluids -CRP elevated at 6 PHYSICIAN ATTESTATION OF PHYSICIAN [employer]IPMENT OPERATOR DOCUMENTATION: I attest that I was physically present for the lomax portions of the service and evaluated the patient with the Physician Butcher Head, and I reviewed and discussed the case with the Physician Butcher Head and made modifications to the Physician Butcher Head's findings and plans of care as documented above DELMAR SORENSON Oct 12, 2024 08:58 LINETTE STEPHENS MD Oct 12, 2024 13:05
[2024-10-12] MEDS ORDERED: LISINOPRIL 10 MG TABLET PO SCH (09:00)
[2024-10-12] MEDS ORDERED: LISINOPRIL 20 MG TABLET PO SCH ×2 (09:00)
[2024-10-12] MEDS: LISINOPRIL 20 MG TABLET PO SCH (09:17)
--- NOTE | 2024-10-12 12:25 | HMCSR ---
APPROVED REPORT EXAM: Two-dimensional and M-mode echocardiogram with Doppler and color Doppler. Study Details: HTN INDICATION ICD: r/o heart failure , D Syncope 2D Dimensions RVDd3.8 cmLVEF(%)85.0 (>50%)LVED Vol(simp.)103.5 mL IVSd1.0 (0.7-1.1cm)FS(%)55 %LVES Vol(simp.)48.4 mL LVDd5.4 (3.8-5.6cm)LA (2D)4.2 (1.6-4.0cm)LVEF(%, simp.)53 % PWd0.8 (0.7-1.1cm)Ao Root(2D)3.4 (2.0-3.7cm)LA ESV INDEX (BP)13.46 mL/m2 IVSs1.4 cmLVOT diam2.3 (1.8-2.4cm) LVDs2.5 (2.5-4.0cm) PWs1.8 cm Deformation Strain Apical 413.3 % Apical 213.1 % Apical 313.1 % Global Dpbeqe61.2 % M-Mode Dimensions EPSS0.3 cm LA (MM)4.5 (1.6-4.0cm) Ao Root(MM)3.0 (2.0-3.7cm) Aortic Valve AoV Vmax1.3 m/Devon Peak GR7.0 mmHgLVOT Vmax1.0 m/s AoV VTI0.2 mAo Mean GR3.6 mmHgLVOT VTI0.20 m RUDY (VMAX)3.34 cm2AVA (VTI) 3.8 cm2 Mitral Valve MV E Vmax64.2 cm/sDECEL Escc561 ms MV A Vmax62.8 cm/sP 1/2 T47 ms E/A ratio1.0MVA (PHT)4.7 cm2 TDI E/E' Medial8.7E/E' Lateral7.4 Medial E' Peak V7.39 cm/sLateral E' Peak V8.62 cm/s Pulmonary Valve PV Vmax1.5 m/sPV VTI0.32 mPV Mean GR5.6 mmHg PV Peak GR9.6 mmHg Left Ventricle The left ventricle is normal size. There is normal LV segmental wall motion. There is normal left dolores tricular wall thickness. LVEF is 50-55%. The left ventricular diastolic function is normal. Right Ventricle The right ventricle is normal size. The right ventricular systolic function is normal. Atria The left atrium size is normal. The interatrial septum is intact with no evidence for an atrial septa l defect. The right atrium size is normal. Aortic Valve Aortic valve is trileaflet. The aortic valve is normal in structure and function. No aortic regurgita tion is present. There is no aortic valvular stenosis. Mitral Valve The mitral valve is normal in structure. There is no evidence of significant mitral regurgitation. Th ere is no mitral valve stenosis. Tricuspid Valve The tricuspid valve is normal in structure. There is no tricuspid valve regurgitation noted. Pulmonic Valve The pulmonary valve is normal in structure. There is no pulmonic valvular regurgitation. Great Vessels The aortic root is normal in size. The ascending aorta is normal in size. The IVC is normal in size a nd collapses >50% with inspiration. Pericardium There is no pericardial effusion. Conclusion There is normal left ventricular wall thickness. LVEF is 50-55%. There is normal LV segmental wall motion.
--- NOTE | 2024-10-12 18:35 | PN ---
[facility] PROGRESS NOTE Date of Service: Oct 12, 2024 Time of Service: 18:33 SUBJECTIVE: 44-year-old male with underlying history of hypertension, history of chronic vertigo which has ongoing for the past two months, who presented to the ER for further evaluation of suspected syncope. Patient states that he was in the kitchen in sitting on his wheelchair when he felt little bit of nausea and palpitations which has followed by syncopal episode. Patient states that he may have had the episode for about 15 seconds. When he woke up, he found his phone on the floor, about 10 minutes later, he had another episode of syncope. Patient denies previous syncopal episode. denies any previous history of cardiac arrhythmia or SD. He denies head hit . Patient reports that he has been having issues with chronic vertiginous symptoms for the past two months.He states that he feels as if he is swaying rather than surroundings are spinning .This feeling is prominent with change in head positions, but also happen when he is resting and last for couple of seconds. He consulted a neurologist in [place]-unknown medical records. Recently had a CT maxillofacial done and was told he had sinusitis. He was prescribed a course of Medrol Dosepak as well as Augmentin. The neurologist also thought that he may have possible vestibular migraine/ocular migraine. He has history of pressure involving the left eye for several months now. Patient has noticed that over the last two months, he will gets tired easily with exertional activities, he has noticed some subjective weakness of the lower extremity as well. He uses a wheel chair because of dizziness. He has tinnitus in the left ear since 1 year. Recently underwent ear lavage for ear wax at that time they ruptured his left ear drum since then he is having hearing loss. He is a chronic smoker and he started smoking at the age of 9. Also he used to vape. His mom is also a chronic smoker and she had dizziness for which she went to the hospital. 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 .He moved from [place] to [place] recently and is trying to establish Neurology , ENT evaluation here .He has an upcoming appointment with ENT specialist as outpatient scheduled on October 31 2024. He also reports having dyspnea on exertion His PCP ordered a sleep study to rule out sleep apnea and he is waiting for the results. . On presentation to the hospital, patient was noted to be afebrile with T-max of 98.4 F, heart rate of 105, blood pressure of 129/61. Labs on presentation showed WBC count to be 1400, hemoglobin 15.8, platelet count of 249681. BMP remarkable for sodium 137, potassium 4.4, BUN of 18, creatinine 1.0, total CK was noted to be mildly high at 743 and liver enzymes were noted to be normal. Chest x-ray Showed no acute infiltrates with possible cardiomegaly. Patient will be admitted for further evaluation of syncopal episode. Patient will undergo further cardiac workup and patient's case was discussed with Dr. Collier with Cardiology. 2D echocardiogram, TSH, ENRICO panel were ordered. He is under telemetry monitoring for malignant arrhythmia under telemetry monitoring. Patient to keep close outpatient follow up with Neurology and ENT as well. 10/12/2024: He is seen and evaluated in the room 405. He is complaining of dizziness, nausea. His vitals are in the normal range except for BP is 149/90. His labs are normal except for the creatine kinase is 871, glucose is 114, Chloride is 100 and MPV is 11.2. His orthostatic vitals are while supine BP is 128/78 and Pulse is 99, while sitting his BP is 133/108 and pulse is 116 and while standing BP is 163/115 and pulse is 131. He is having orthostatic hypertension. Echocardiogram and CT head are normal. Chest X-ray showed cardiomegaly. Meclizine was added. We ordered MRI without contrast as he is allergic to contrast. A Neurology consultation will be requested.He is in NAD. REVIEW OF SYSTEMS CONSTITUTIONAL: Denies fevers, chills, or night sweats. No unintentional weight loss reported. NEUROLOGICAL: Dizziness Denies headache, amaurosis fugax, motor weakness, sensory deficit, vertigo/spinning sensation, gait abnormalities, or tremors. ENT: No hearing loss, otalgia, otorrhea, rhinitis, rhinorrhea, hoarseness, or sore throat. CARDIOVASCULAR: Syncopal episode x 2 today PULMONARY: Denies any shortness of breath, cough, phlegm/sputum, hemoptysis, pleuritic chest pain. SLEEP: Denies morning headaches, daytime somnolence or napping. Denies difficulty falling asleep, staying asleep, waking from sleep. Denies knowledge of snoring. GASTROINTESTINAL: Denies any type of dysphagia to either liquids or solids. Denies nausea, vomiting, pyrosis, early satiety, abdominal pain, diarrhea, constipation, or changes in stool consistency or caliber. Denies coffee-ground emesis, hematemesis, hematochezia, or melanotic stools. GENITOURINARY: Denies frequency, urgency, nocturia, hematuria or incontinence (Storage/Irritative symptoms.) Low urinary stream, straining to void, urinary intermittency or hesitancy, splitting of the voiding stream, terminal dribbling. ENDOCRINOLOGIC: Denies polyuria, polydipsia, polyphagia or heat/cold intolerances. HEMATOLOGIC: Denies thrombophilia/previous clots, or coagulopathy/bleeding disorders. ONCOLOGIC: Denies personal history of malignancy. DERMATOLOGIC: Denies rashes or pruritus. PSYCHIATRIC: Denies any suicidal or homicidal ideation. Denies hallucinations. PHYSICAL EXAM GENERAL APPEARANCE: The patient is awake, alert, and oriented, in no acute cardiopulmonary distress. NEUROLOGICAL: Cranial nerves II-XII grossly intact. Motor is 5/5 in bilateral upper and lower extremities proximal to distal. No objective weakness noted of bilateral lower extremities HEENT: Face is symmetric. Pupils are equal and reactive. Extraocular movements are intact. NECK: Supple. No JVD. No thyromegaly. No submental, submandibular, pre- /postauricular, occipital or supraclavicular lymphadenopathy. CHEST: Normal chest expansion. No Telemetry. LUNGS: Absence of any rales, rhonchi or any wheezing. CARDIOVASCULAR: Regular. S1 and S2 normal. No appreciable rubs, murmurs or gallops. ABDOMEN: Soft, nontender, and nondistended. There is no rebound, voluntary guarding, or rigidity. : Deferred. No Peralta. EXTREMITIES: Non-edematous and not cyanotic. No clubbing. Good capillary refill. SKIN: No skin breakdown. Vital Signs (last 8hr) Date Time Temp Pulse Resp B/P (MAP) Pulse Ox O2 Delivery O2 Flow Rate FiO2 10/12/24 18:31 71 18 N/A Room Air 21 10/12/24 16:00 98.6 91 18 149/90 96 Room Air 10/12/24 12:33 18 N/A Room Air 21 10/12/24 12:00 99.3 88 20 128/84 95 Room Air 133/108 163/115 LABS: Laboratory: Test 10/12/24 11:04 10/12/24 03:05 10/11/24 22:08 10/11/24 12:52 Range/Units Whole Blood Glucose 114 H 70-110 MG/DL White Blood Count 7.7 4.8-10.8 K/uL Red Blood Count 5.10 4.50-6.20 MIL/uL Hemoglobin 15.0 14.0-18.0 g/dL Hematocrit 45.8 42-54 % Mean Corpuscular Volume 89.8 79-99 fL Mean Corpuscular Hemoglobin 29.4 27.0-33.0 pg Mean Corpuscular Hemoglobin Concent 32.8 32.0-36.0 g/dL Red Cell Distribution Width 12.4 11.0-15.5 % Platelet Count 212 130-400 K/uL Mean Platelet Volume 11.2 H 7.5-10.5 fL Immature Granulocyte % (Auto) 0.5 0-1 % Neutrophils (%) (Auto) 60.9 40.0-77.0 % Lymphocytes (%) (Auto) 28.1 21.0-51.0 % Monocytes (%) (Auto) 7.4 3.0-13.0 % Eosinophils (%) (Auto) 2.6 0.0-8.0 % Basophils (%) (Auto) 0.5 0.0-5.0 % Neutrophils # (Auto) 4.7 1.8-7.7 K/uL Lymphocytes # (Auto) 2.2 1.0-4.8 K/uL Monocytes # (Auto) 0.6 0.1-1.0 K/uL Eosinophils # (Auto) 0.20 0.00-0.70 K/uL Basophils # (Auto) 0.04 0.00-0.20 K/uL Absolute Immature Granulocyte (auto 0.04 0-1 K/uL Nucleated Red Blood Cells 0.0 0.0-0.19 % Sodium Level 136 136-145 mmol/L Potassium Level 4.0 3.5-5.1 mmol/L Chloride Level 100 L 101-111 mmol/L Carbon Dioxide Level 28 21-32 mmol/L Blood Urea Nitrogen 14 7-18 mg/dL Creatinine 0.9 0.5-1.3 mg/dL Glomerular Filtration Rate Calc 108 >90 mL/min Random Glucose 97 70-105 mg/dL Total Calcium 8.6 8.5-10.1 mg/dL Total Creatine Kinase 871 *H 21-232 U/L Influenza Type A Antigen Negative For Type A NEGATIVE Influenza Type B Antigen Negative For Type B NEGATIVE SARS-CoV-2, RNA, NAAT NEGATIVE SARS CoV-2 NEGATIVE Urine Color LIGHT-YELLOW YELLOW Urine Appearance CLEAR CLEAR Urine pH 7.0 5.0-8.0 Urine Specific Collins 1.024 1.001-1.031 Urine Protein NEGATIVE NEGATIVE mg/dL Urine Glucose (UA) NEGATIVE NEGATIVE mg/dL Urine Ketones NEGATIVE NEGATIVE mg/dL Urine Occult Blood NEGATIVE NEGATIVE Urine Nitrate NEGATIVE NEGATIVE Urine Bilirubin NEGATIVE NEGATIVE mg/dL Urine Urobilinogen 0.2 0.2-1.0 mg/dL Urine Leukocyte Esterase NEGATIVE NEGATIVE Hermelindo/uL Urine Opiates Screen NEGATIVE NEGATIVE Urine Barbiturates Screen NEGATIVE NEGATIVE Urine Phencyclidine Screen NEGATIVE NEGATIVE Urine Amphetamines Screen NEGATIVE NEGATIVE Urine Benzodiazepines Screen NEGATIVE NEGATIVE Urine Cocaine Screen NEGATIVE NEGATIVE Urine Marijuana (THC) Screen NEGATIVE NEGATIVE Test 10/11/24 12:13 Range/Units Erythrocyte Sedimentation Rate 8 0-15 MM/HR Prothrombin Time 10.3 9.6-11.6 SEC Prothromb Time International Ratio 0.97 0.85-1.15 Activated Partial Thromboplast Time 28.2 26.3-35.5 SEC D-Dimer Quantitative (PE/DVT) 158 0-500 ng/mL Hemoglobin A1c 5.5 4.0-6.0 % Estimated Average Glucose (eAG) 111 70-126 mg/dL Magnesium Level 1.80 1.80-2.40 mg/dL Total Bilirubin 0.6 0.2-1.0 mg/dL Direct Bilirubin 0.1 0.0-0.3 mg/dL Aspartate Amino Transf (AST/SGOT) 23 10-37 U/L Alanine Aminotransferase (ALT/SGPT) 53 12-78 U/L Alkaline Phosphatase 60 50-136 U/L Lactate Dehydrogenase 189 81-234 U/L Troponin I High Sensitivity < 4.0 L 4-75 ng/L C-Reactive Protein, Quantitative 5.70 H 0.5-3.0 mg/L B-Type Natriuretic Peptide < 5 0-100 pg/mL Total Protein 6.9 6.0-8.3 g/dL Albumin 3.5 3.5-5.0 g/dL Thyroid Stimulating Hormone (TSH) 0.94 0.36-3.74 uIU/mL Serum Alcohol < 3 0-10 mg/dL Current Medications Medications (Trade) Dose Ordered Sig/Alejandro Route PRN Reason Start Time Stop Time Status Last Admin Dose Admin Acetaminophen (TYLenol 325MG TAB) 650 mg Q6H PRN PO MILD PAIN (1-3) 10/11/24 14:30 11/10/24 14:29 Albuterol (DUOneb) 1 udvial Q6H PRN IH SHORTNESS OF BREATH 10/11/24 14:30 11/10/24 14:29 Labetalol HCl (TRANdate 20MG SYG) 10 mg Q6H PRN IV for SBP> 170 10/11/24 14:30 11/10/24 14:29 Lactated Ringer's 1,000 ml @ 100 mls/hr Q10H IV 10/11/24 14:30 11/10/24 14:29 10/12/24 04:58 70 MLS/HR Lisinopril (Prinivil 10mg) 10 mg DAILY PO 10/12/24 09:00 10/12/24 07:44 DC Lisinopril (Prinivil 20mg) 20 mg DAILY PO 10/12/24 09:00 10/11/24 19:19 DC Lisinopril (Prinivil 20mg) 20 mg DAILY PO 10/12/24 09:00 10/12/24 08:59 DC Lisinopril (Prinivil 20mg) 30 mg DAILY PO 10/12/24 09:00 11/11/24 08:59 10/12/24 09:17 30 MG Meclizine HCl (ANTIvert 12.5 mg) 12.5 mg BID PRN PO DIZZINESS 10/12/24 17:30 11/11/24 17:29 Ondansetron HCl (zoFRAN 4MG INJ) 4 mg Q6H PRN IVP NAUSEA/VOMITING 10/11/24 14:30 11/10/24 14:29 DIAGNOSTICS / RADIOLOGY: [place] [id number] [address] IMAGING REPORT Signed PATIENT: SERAFIN ACEVEDO MR#: [id number] : 1980 SEX: M AGE: 44 LOCATION: [facility] ORDER 08 STATUS: ADM IN REPORT#: [id number] SERVICE 05 REASON: syncope, r/o heart failure, Dr. Collier to read ORDERING PHYSICIAN: GAIL MENJIVAR MD PROCEDURE: ECHO CMP - ECHO 2-D COMPLETE APPROVED REPORT EXAM: Two-dimensional and M-mode echocardiogram with Doppler and color Doppler. Study Details: HTN INDICATION ICD: r/o heart failure , D Syncope 2D Dimensions RVDd 3.8 cm LVEF(%) 85.0 (>50%) LVED Vol(simp.) 103.5 mL IVSd 1.0 (0.7-1.1cm) FS(%) 55 % LVES Vol(simp.) 48.4 mL LVDd 5.4 (3.8-5.6cm) LA (2D) 4.2 (1.6-4.0cm) LVEF(%, simp.) 53 % PWd 0.8 (0.7-1.1cm) Ao Root(2D) 3.4 (2.0-3.7cm) LA ESV INDEX (BP) 13.46 mL/m2 IVSs 1.4 cm LVOT diam 2.3 (1.8-2.4cm) LVDs 2.5 (2.5-4.0cm) PWs 1.8 cm Deformation Strain Apical 4 13.3 % Apical 2 13.1 % Apical 3 13.1 % Global Strain 13.2 % M-Mode Dimensions EPSS 0.3 cm LA (MM) 4.5 (1.6-4.0cm) Ao Root(MM) 3.0 (2.0-3.7cm) Aortic Valve AoV Vmax 1.3 m/s Ao Peak GR 7.0 mmHg LVOT Vmax 1.0 m/s AoV VTI 0.2 m Ao Mean GR 3.6 mmHg LVOT VTI 0.20 m RUDY (VMAX) 3.34 cm2 RUDY (VTI) 3.8 cm2 Mitral Valve MV E Vmax 64.2 cm/s DECEL Time 158 ms MV A Vmax 62.8 cm/s P 1/2 T 47 ms E/A ratio 1.0 MVA (PHT) 4.7 cm2 TDI E/E' Medial 8.7 E/E' Lateral 7.4 Medial E' Peak V 7.39 cm/s Lateral E' Peak V 8.62 cm/s Pulmonary Valve PV Vmax 1.5 m/s PV VTI 0.32 m PV Mean GR 5.6 mmHg PV Peak GR 9.6 mmHg Left Ventricle The left ventricle is normal size. There is normal LV segmental wall motion. There is normal left ventricular wall thickness. LVEF is 50-55%. The left ventricular diastolic function is normal. Right Ventricle The right ventricle is normal size. The right ventricular systolic function is normal. Atria The left atrium size is normal. The interatrial septum is intact with no evide nce for an atrial septal defect. The right atrium size is normal. Aortic Valve Aortic valve is trileaflet. The aortic valve is normal in structure and function. No aortic regurgitation is present. There is no aortic valvular stenosis. Mitral Valve The mitral valve is normal in structure. There is no evidence of significant mitral regurgitation. There is no mitral valve stenosis. Tricuspid Valve The tricuspid valve is normal in structure. There is no tricuspid valve regurgitation noted. Pulmonic Valve The pulmonary valve is normal in structure. There is no pulmonic valvular regurgitation. Great Vessels The aortic root is normal in size. The ascending aorta is normal in size. The IVC is normal in size and collapses >50% with inspiration. Pericardium There is no pericardial effusion. Conclusion There is normal left ventricular wall thickness. LVEF is 50-55%. There is normal LV segmental wall motion. DICTATED BY: SANG COLLIER MD DATE: 10/12/24 0903 ELECTRONICALLY SIGNED BY: SANG COLLIER MD DATE: 10/12/24 1225 ASSESSMENT: Syncopal episode x2, POA Heart failure, POA ruled out Hypertension, POA Rhabdomyolysis, mild, POA Chronic vertigo , POA Recent history of sinusitis treated with outpatient course of steroids and antibiotics, POA Deconditioning, POA History of multiple concussions- possible cause of vertigo to be ruled out . PLAN: Syncopal episode x2, POA His head CT, echocardiogram, ECG are normal. Cardiology consult was placed and they are waiting for the echo results. Neurology consult was placed and we are waiting for their recommendations. Ordered MRI without contrast. Started on Meclizine. His orthostatic vitals are while supine BP is 128/78 and Pulse is 99, while sitting his BP is 133/108 and pulse is 116 and while standing BP is 163/115 and pulse is 131. Heart failure, POA, ruled out Chest X-ray showed cardiomegaly. His echocardiogram is normal. Hypertension, POA Today is BP is 149/90. He continues on lisinopril. Rhabdomyolysis, mild, POA Today his creatine kinase is increased from 743 to 871. His potassium, bicarbonate are normal. Continue lactated ringer. Will repeat his labs tomorrow. ATTESTATION BY PHYSICIAN I have seen and examined the patient. I reviewed the documentation, medical decision making, and treatment plan as noted by the resident provider above. I agree with the findings and plan of care. Lupillo Coffey MD, AKSHAY MD Oct 12, 2024 18:35 ROSA LOPEZ MD Oct 13, 2024 05:40
[2024-10-13] VITALS (13 sets, daily range): BP systolic 118–152; BP diastolic 66–102; PULSE 62–100; RESP 17–20; TEMP 97.6–98.7; O2SAT 98–99
[2024-10-13 03:49] LABS: NUCLEATED RED BLOOD CELLS 0.0 % (0.0-0.19); PLATELET COUNT (AUTO) 268.0 K/uL (130-400); RED BLOOD CELL COUNT(AUTO) 4.96 MIL/uL (4.50-6.20); RED CELL DISTRIBUTION WIDTH 12.3 % (11.0-15.5); WHITE BLOOD COUNT (AUTO) 8.2 K/uL (4.8-10.8)
[2024-10-13 04:19] LABS: CREATININE 0.9 mg/dL (0.5-1.3); GLOMERULAR FILTR. RATE CALC 108.0 mL/min (>90); GLUCOSE,RANDOM 98.0 mg/dL (70-105); SODIUM SERUM 137.0 mmol/L (136-145); UREA NITROGEN, BLOOD 13.0 mg/dL (7-18)
[2024-10-13 04:30] LABS: CREATINE KINASE, TOTAL 721.0 U/L (21-232)
--- NOTE | 2024-10-13 06:11 | PN ---
[facility] Cardiology Progress Note Calves on cardiology progress note October 13, 2024 Problems: 1. Syncope with prodrome of dizziness. 2. Dyspnea on exertion with cardiomegaly and history of hypertension rule out diastolic left ventricular dysfunction 3. Hypertension 4. Elevated CK possibly rhabdomyolysis but given his generalized weakness it may need to consider polymyositis. 5. Vertigo with no improvement after antibiotics and steroids for sinusitis. The patient is scheduled to see an ENT physician as an outpatient. Orthostatic vital signs on admission were normal. Today blood pressure is running 120-130 systolic. Heart rate has been in the 60-70 range. The patient is afebrile. White count 8.2 Hemoglobin 14.7 Platelet count [id number]. The CT scan of the head showed no acute intracranial findings. A 2D echo shows ejection fraction of 60-65%. There was no significant diastolic dysfunction. No valvular heart disease and no pericardial effusion. D-dimer test was normal at 158. Influenza a B and SARS all negative. Sedimentation rate normal at eight which would argue against polymyositis liver function tests have been normal. Troponin was normal. Brain natriuretic peptide level normal. TSH level normal. The cause for the patient's rhabdomyolysis is unclear. He did have two syncopal spells but does not recall any bodily injury. There was no evidence to suggest polymyositis with a normal sedimentation rate. Creatinine kinase has been 743, 871 and 721. If they continued to trend down I would recommend no additional workup for this. From my standpoint he can follow up with me as an outpatient and we will arrange for a two week event monitor. SANG AMARAL MD Oct 13, 2024 06:11
--- NOTE | 2024-10-13 10:34 | NUR ---
DCP: HOME met with pt who is from , but has [address], [place], [place] where he lives with caro Moj[phone]. 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 States he gets medical care in [place] because he is seen sooner than in . Pt is seen at [facility] by Leslie Stanley and uses [facility] [address]. Related to his dizzy spells, pt does not drive, can take quick showers on his own, uses a w/c around he house and outside home. No in home care services, HH or HD. Pt denies need for SNF, states he will return home at sd. Addendum: 10/13/24 at 1047 by TALAT MADRID SS Amended: Links added.
--- NOTE | 2024-10-13 15:50 | CONS ---
CONSULTATION NOTE Date of Service: Oct 13, 2024 Reason for Consultation: Evaluation of vertigo Requesting Physician: Hospitalist HISTORY OF PRESENT ILLNESS: Jake is a 44-year-old right-handed male with a history of migraines and eight concussions from playing football up to college level presenting with chronic dizziness and recent loss of consciousness episodes. The patient reports experiencing his first dizzy spell about a year ago, lasting 10-15 seconds. Since then, the episodes have become more frequent and prolonged, now occurring constantly from waking to sleeping. The patient describes his dizziness as feeling like "a bowl of water being shaken" when he moves his head, with the sensation persisting even after stopping movement. Any head movement, particularly [id number], exacerbates the dizziness. Associated symptoms include brain fog, blurry vision, and occasional double vision upon waking. He also experiences pressure around his eyes, which he likens to wearing scuba goggles all day. Recently, Jake experienced two episodes of loss of consciousness while sitting down and cooking. Each episode lasted a few seconds and occurred about 15 minutes apart. He reports feeling panicked and scared by these events. During severe symptomatic episodes, he experiences a sensation "like a curtain closing" from his head to his feet, accompanied by cold sweats and a barely noticeable shaking. He also reports panic attacks and shortness of breath associated with these episodes. One month ago, Jake was diagnosed with sinusitis at [facility], where a CT scan revealed sinus congestion. He was prescribed antibiotics and steroids for seven days, along with instructions to use a neti pot. Following neti pot use, he experienced ear popping and fizzing. Subsequently, he developed ear pain and bleeding, leading to a diagnosis of otitis externa. He was given steroid ear drops, but reports his symptoms have worsened since then, including the onset of tinnitus. The patient denies current headaches but mentions a history of migraines. He has an upcoming appointment with an ENT on October 31 to further evaluate his symptoms. 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 HEENT: Positive for blurry vision, double vision, pressure around eyes, ear ringing, ear pain. Respiratory: Positive for shortness of breath. Neurological: Positive for dizziness, vertigo, brain fog. Negative for headaches. Psychiatric: Positive for anxiety, panic attacks. PAST MEDICAL HISTORY: - Otitis externa - Sinusitis - History of migraines - Eight concussions from playing football up to college level - History of ear tubes insertion as an PAST SURGICAL HISTORY: As above PAST SOCIAL HISTORY: As above FAMILY HISTORY: Noncontributory Coded Allergies: iodine (Unverified Allergy, Intermediate, HIVES, 10/11/24) metoclopramide (Unverified Allergy, Intermediate, RASH, 10/11/24) PHYSICAL EXAM Mental status: The patient is alert, attentive, and oriented. Speech is clear and fluent with good repetition, comprehension, and naming. Pt recalls 3/3 objects at 5 minutes. Cranial nerves: CN II: Visual cortez are full to confrontation. CN III, IV, : At primary gaze, there is no eye deviation. CN V: Facial sensation is intact to pinprick in all 3 divisions bilaterally. Corneal responses are intact. CN VII: Face is symmetric with normal eye closure and smile. CN VIII: Hearing is normal to rubbing fingers CN IX, X: Palate elevates symmetrically. Phonation is normal. CN XI: Head turning and shoulder shrug are intact CN XII: Tongue is midline with normal movements and no atrophy. Motor: There is no pronator drift of out-stretched arms. Muscle bulk and tone are normal. Strength is full bilaterally. Reflexes: Reflexes are 2+ and symmetric at the biceps, triceps, knees, and ankles. Plantar responses are flexor. Sensory: Light touch, pinprick, position sense, and vibration sense are intact in fingers and toes. Coordination: Rapid alternating movements and fine finger movements are intact. There is no dysmetria on greemt-[id number] and [id number]-[id number]. There are no abnormal or extraneous movements. Romberg is absent. Gait/Stance: Not evaluated Vital Sign (Last 24 Hours) 10/13/24 10/13/24 10/13/24 07:53 08:20 11:24 Temp 98.4 Pulse 88 Resp 20 B/P (MAP) 131/88 Pulse Ox 100 O2 Delivery Room Air O2 Flow Rate 0 FiO2 21 Intake & Output (last 24hrs) 10/12/24 10/12/24 10/13/24 15:00 23:00 07:00 Intake Total 400 ml Output Total 1200 ml Balance -800 ml LABS: Laboratory: Test 10/13/24 03:36 10/12/24 11:04 10/12/24 03:05 10/11/24 22:08 Range/Units White Blood Count 8.2 4.8-10.8 K/uL Red Blood Count 4.96 4.50-6.20 MIL/uL Hemoglobin 14.7 14.0-18.0 g/dL Hematocrit 43.9 42-54 % Mean Corpuscular Volume 88.5 79-99 fL Mean Corpuscular Hemoglobin 29.6 27.0-33.0 pg Mean Corpuscular Hemoglobin Concent 33.5 32.0-36.0 g/dL Red Cell Distribution Width 12.3 11.0-15.5 % Platelet Count 268 # 130-400 K/uL Mean Platelet Volume 10.4 7.5-10.5 fL Nucleated Red Blood Cells 0.0 0.0-0.19 % Sodium Level 137 136-145 mmol/L Potassium Level 4.2 3.5-5.1 mmol/L Chloride Level 103 101-111 mmol/L Carbon Dioxide Level 27 21-32 mmol/L Blood Urea Nitrogen 13 7-18 mg/dL Creatinine 0.9 0.5-1.3 mg/dL Glomerular Filtration Rate Calc 108 >90 mL/min Random Glucose 98 70-105 mg/dL Total Calcium 8.7 8.5-10.1 mg/dL Total Creatine Kinase 721 *H 21-232 U/L Whole Blood Glucose 114 H 70-110 MG/DL Immature Granulocyte % (Auto) 0.5 0-1 % Neutrophils (%) (Auto) 60.9 40.0-77.0 % Lymphocytes (%) (Auto) 28.1 21.0-51.0 % Monocytes (%) (Auto) 7.4 3.0-13.0 % Eosinophils (%) (Auto) 2.6 0.0-8.0 % Basophils (%) (Auto) 0.5 0.0-5.0 % Neutrophils # (Auto) 4.7 1.8-7.7 K/uL Lymphocytes # (Auto) 2.2 1.0-4.8 K/uL Monocytes # (Auto) 0.6 0.1-1.0 K/uL Eosinophils # (Auto) 0.20 0.00-0.70 K/uL Basophils # (Auto) 0.04 0.00-0.20 K/uL Absolute Immature Granulocyte (auto 0.04 0-1 K/uL Influenza Type A Antigen Negative For Type A NEGATIVE Influenza Type B Antigen Negative For Type B NEGATIVE SARS-CoV-2, RNA, NAAT NEGATIVE SARS CoV-2 NEGATIVE DIAGNOSTICS / RADIOLOGY: [ ] ASSESSMENT / PLAN: Mr. Alcala is a 44-year-old male with a history of multiple concussions presenting with chronic vertigo, dizziness, and recent episodes of loss of consciousness. Chronic peripheral vertigo Assessment: Patient reports a one-year history of progressively worsening vertigo and dizziness, now constant throughout the day. Symptoms are exacerbated by head movement, described as feeling like a "bowl of water being shaken." Associated symptoms include brain fog, blurry vision, and occasional double vision upon waking. Recent history of sinusitis, otitis media, and otitis externa, diagnosed at [facility] approximately one month ago. CT scan of sinuses revealed congestion. Patient was treated with antibiotics and steroids for seven days, followed by steroid ear drops for otitis externa. Symptoms have worsened since treatment, with the addition of tinnitus. Given the patient's history of ear infections and recent treatments, the most likely diagnosis is vestibulitis, an inflammation of the vestibular system secondary to chronic sinusitis and ear infections. Plan: - Order MRI of the brain to rule out intracranial pathology - Continue with scheduled ENT appointment on October 31 for further evaluation and management of vertigo and ear-related issues - Educate patient on the likely vestibular origin of symptoms and the need for resolution of underlying infections for symptom improvement - Advise against the use of Q-tips or other objects in the ear canal to prevent further injury Vasovagal syncope Assessment: Patient reports two recent episodes of loss of consciousness, each lasting a few seconds. The episodes occurred while the patient was seated and were accompanied by feelings of panic. Given the context of severe vertigo and associated anxiety, these episodes are likely vasovagal syncope triggered by the patient's vestibular symptoms and anxiety response. Plan: - Educate patient on the relationship between vertigo, anxiety, and syncope - Instruct patient on relaxation techniques and proper breathing to prevent hyperventilation and potential respiratory alkalosis - Advise patient to change positions slowly and avoid prolonged standing to prevent syncope Anxiety related to vestibular symptoms Assessment: Patient experiences anxiety symptoms including panic, cold sweats, and a sensation of trembling in response to severe vertigo episodes. These symptoms are consistent with a psychological response to the distressing nature of vestibular dysfunction. Plan: - Provide reassurance about the benign nature of symptoms - Educate patient on the mind-body connection in vestibular disorders - Encourage stress management techniques and consider referral for cognitive- behavioral therapy if symptoms persist or worsen History of multiple concussions Assessment: Patient reports a history of eight concussions from playing football up to the college level. While post-concussion syndrome can cause symptoms similar to those the patient is experiencing, the current presentation is more likely related to recent ear and sinus infections. Plan: - Monitor for any cognitive symptoms that may be related to previous concussions - Include assessment of cognitive function in neurological follow-up if MRI results are negative Thank you for your consultation. I will sign off. MAHOGANY CARVAJAL MD Oct 13, 2024 15:49
--- NOTE | 2024-10-13 16:35 | PN ---
[facility] PROGRESS NOTE Date of Service: Oct 13, 2024 Time of Service: 16:33 SUBJECTIVE: 44-year-old male with underlying history of hypertension, history of chronic vertigo which has ongoing for the past two months, who presented to the ER for further evaluation of suspected syncope. Patient states that he was in the kitchen in sitting on his wheelchair when he felt little bit of nausea and palpitations which has followed by syncopal episode. Patient states that he may have had the episode for about 15 seconds. When he woke up, he found his phone on the floor, about 10 minutes later, he had another episode of syncope. Patient denies previous syncopal episode. denies any previous history of cardiac arrhythmia or RI. He denies head hit . Patient reports that he has been having issues with chronic vertiginous symptoms for the past two months.He states that he feels as if he is swaying rather than surroundings are spinning .This feeling is prominent with change in head positions, but also happen when he is resting and last for couple of seconds. He consulted a neurologist in [place]-unknown medical records. Recently had a CT maxillofacial done and was told he had sinusitis. He was prescribed a course of Medrol Dosepak as well as Augmentin. The neurologist also thought that he may have possible vestibular migraine/ocular migraine. He has history of pressure involving the left eye for several months now. Patient has noticed that over the last two months, he will gets tired easily with exertional activities, he has noticed some subjective weakness of the lower extremity as well. He uses a wheel chair because of dizziness. He has tinnitus in the left ear since 1 year. Recently underwent ear lavage for ear wax at that time they ruptured his left ear drum since then he is having hearing loss. He is a chronic smoker and he started smoking at the age of 9. Also he used to vape. His mom is also a chronic smoker and she had dizziness for which she went to the hospital. 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 .He moved from [place] to [place] recently and is trying to establish Neurology , ENT evaluation here .He has an upcoming appointment with ENT specialist as outpatient scheduled on October 31 2024. He also reports having dyspnea on exertion His PCP ordered a sleep study to rule out sleep apnea and he is waiting for the results. . On presentation to the hospital, patient was noted to be afebrile with T-max of 98.4 F, heart rate of 105, blood pressure of 129/61. Labs on presentation showed WBC count to be 1400, hemoglobin 15.8, platelet count of 270399. BMP remarkable for sodium 137, potassium 4.4, BUN of 18, creatinine 1.0, total CK was noted to be mildly high at 743 and liver enzymes were noted to be normal. Chest x-ray Showed no acute infiltrates with possible cardiomegaly. Patient will be admitted for further evaluation of syncopal episode. Patient will undergo further cardiac workup and patient's case was discussed with Dr. Collier with Cardiology. 2D echocardiogram, TSH, ENRICO panel were ordered. He is under telemetry monitoring for malignant arrhythmia under telemetry monitoring. Patient to keep close outpatient follow up with Neurology and ENT as well. 10/12/2024: He is seen and evaluated in the room 405. He is complaining of dizziness, nausea. His vitals are in the normal range except for BP is 149/90. His labs are normal except for the creatine kinase is 871, glucose is 114, Chloride is 100 and MPV is 11.2. His orthostatic vitals are while supine BP is 128/78 and Pulse is 99, while sitting his BP is 133/108 and pulse is 116 and while standing BP is 163/115 and pulse is 131. He is having orthostatic hypertension. Echocardiogram and CT head are normal. Chest X-ray showed cardiomegaly. Meclizine was added. We ordered MRI without contrast as he is allergic to contrast. A Neurology consultation will be requested.He is in NAD. 10/13/2024: He is seen and evaluated in the room 405. He is complaining of dizziness, nausea. His vitals are in the normal range. Echocardiogram and CT head are normal. Chest X-ray showed cardiomegaly. Meclizine was added. Neurology consulted and they said the most likely diagnosis is vestibulitis, an inflammation of the vestibular system secondary to chronic sinusitis and ear infections. Ordered MRI of the brain to rule out intracranial pathology, continue with scheduled ENT appointment on October 31 for further evaluation and management of vertigo and ear-related issues, educate patient on the likely vestibular origin of symptoms and the need for resolution of underlying infections for symptom improvement, advise against the use of Q-tips or other objects in the ear canal to prevent further injury. Ultrasound liver ordered for fatty liver. Creatinine kinase is trending down from 871 to 721. REVIEW OF SYSTEMS CONSTITUTIONAL: Denies fevers, chills, or night sweats. No unintentional weight loss reported. NEUROLOGICAL: Dizziness Denies headache, amaurosis fugax, motor weakness, sensory deficit, vertigo/spinning sensation, gait abnormalities, or tremors. ENT: Decreased hearing in left ear. CARDIOVASCULAR: Syncopal episode x 2 today PULMONARY: Denies any shortness of breath, cough, phlegm/sputum, hemoptysis, pleuritic chest pain. SLEEP: Denies morning headaches, daytime somnolence or napping. Denies difficulty falling asleep, staying asleep, waking from sleep. Denies knowledge of snoring. GASTROINTESTINAL: Denies any type of dysphagia to either liquids or solids. Denies nausea, vomiting, pyrosis, early satiety, abdominal pain, diarrhea, constipation, or changes in stool consistency or caliber. Denies coffee-ground emesis, hematemesis, hematochezia, or melanotic stools. GENITOURINARY: Denies frequency, urgency, nocturia, hematuria or incontinence (Storage/Irritative symptoms.) Low urinary stream, straining to void, urinary intermittency or hesitancy, splitting of the voiding stream, terminal dribbling. ENDOCRINOLOGIC: Denies polyuria, polydipsia, polyphagia or heat/cold intolerances. PHYSICAL EXAM GENERAL APPEARANCE: The patient is awake, alert, and oriented, in no acute cardiopulmonary distress. NEUROLOGICAL: Cranial nerves II-XII grossly intact. Motor is 5/5 in bilateral upper and lower extremities proximal to distal. No objective weakness noted of bilateral lower extremities HEENT: Face is symmetric. Pupils are equal and reactive. Extraocular movements are intact. NECK: Supple. No JVD. No thyromegaly. No submental, submandibular, pre- /postauricular, occipital or supraclavicular lymphadenopathy. CHEST: Normal chest expansion. No Telemetry. LUNGS: Absence of any rales, rhonchi or any wheezing. CARDIOVASCULAR: Regular. S1 and S2 normal. No appreciable rubs, murmurs or gallops. ABDOMEN: Soft, nontender, and nondistended. There is no rebound, voluntary guarding, or rigidity. : Deferred. No Peralta. EXTREMITIES: Non-edematous and not cyanotic. No clubbing. Good capillary re fill. SKIN: No skin breakdown. Vital Signs (last 8hr) Date Time Temp Pulse Resp B/P (MAP) Pulse Ox O2 Delivery O2 Flow Rate FiO2 10/13/24 11:24 98.4 88 20 131/88 100 Room Air LABS: Laboratory: Test 10/13/24 03:36 10/12/24 11:04 10/12/24 03:05 10/11/24 22:08 Range/Units White Blood Count 8.2 4.8-10.8 K/uL Red Blood Count 4.96 4.50-6.20 MIL/uL Hemoglobin 14.7 14.0-18.0 g/dL Hematocrit 43.9 42-54 % Mean Corpuscular Volume 88.5 79-99 fL Mean Corpuscular Hemoglobin 29.6 27.0-33.0 pg Mean Corpuscular Hemoglobin Concent 33.5 32.0-36.0 g/dL Red Cell Distribution Width 12.3 11.0-15.5 % Platelet Count 268 # 130-400 K/uL Mean Platelet Volume 10.4 7.5-10.5 fL Nucleated Red Blood Cells 0.0 0.0-0.19 % Sodium Level 137 136-145 mmol/L Potassium Level 4.2 3.5-5.1 mmol/L Chloride Level 103 101-111 mmol/L Carbon Dioxide Level 27 21-32 mmol/L Blood Urea Nitrogen 13 7-18 mg/dL Creatinine 0.9 0.5-1.3 mg/dL Glomerular Filtration Rate Calc 108 >90 mL/min Random Glucose 98 70-105 mg/dL Total Calcium 8.7 8.5-10.1 mg/dL Total Creatine Kinase 721 *H 21-232 U/L Whole Blood Glucose 114 H 70-110 MG/DL Immature Granulocyte % (Auto) 0.5 0-1 % Neutrophils (%) (Auto) 60.9 40.0-77.0 % Lymphocytes (%) (Auto) 28.1 21.0-51.0 % Monocytes (%) (Auto) 7.4 3.0-13.0 % Eosinophils (%) (Auto) 2.6 0.0-8.0 % Basophils (%) (Auto) 0.5 0.0-5.0 % Neutrophils # (Auto) 4.7 1.8-7.7 K/uL Lymphocytes # (Auto) 2.2 1.0-4.8 K/uL Monocytes # (Auto) 0.6 0.1-1.0 K/uL Eosinophils # (Auto) 0.20 0.00-0.70 K/uL Basophils # (Auto) 0.04 0.00-0.20 K/uL Absolute Immature Granulocyte (auto 0.04 0-1 K/uL Influenza Type A Antigen Negative For Type A NEGATIVE Influenza Type B Antigen Negative For Type B NEGATIVE SARS-CoV-2, RNA, NAAT NEGATIVE SARS CoV-2 NEGATIVE Current Medications Medications (Trade) Dose Ordered Sig/Alejandro Route PRN Reason Start Time Stop Time Status Last Admin Dose Admin Acetaminophen (TYLenol 325MG TAB) 650 mg Q6H PRN PO MILD PAIN (1-3) 10/11/24 14:30 11/10/24 14:29 Albuterol (DUOneb) 1 udvial Q6H PRN IH SHORTNESS OF BREATH 10/11/24 14:30 11/10/24 14:29 Labetalol HCl (TRANdate 20MG SYG) 10 mg Q6H PRN IV for SBP> 170 10/11/24 14:30 11/10/24 14:29 Lactated Ringer's 1,000 ml @ 100 mls/hr Q10H IV 10/11/24 14:30 11/10/24 14:29 10/13/24 15:10 100 MLS/HR Lisinopril (Prinivil 10mg) 10 mg DAILY PO 10/12/24 09:00 10/12/24 07:44 DC Lisinopril (Prinivil 20mg) 20 mg DAILY PO 10/12/24 09:00 10/11/24 19:19 DC Lisinopril (Prinivil 20mg) 20 mg DAILY PO 10/12/24 09:00 10/12/24 08:59 DC Lisinopril (Prinivil 20mg) 30 mg DAILY PO 10/12/24 09:00 11/11/24 08:59 10/13/24 07:52 30 MG Meclizine HCl (ANTIvert 12.5 mg) 12.5 mg BID PRN PO DIZZINESS 10/12/24 17:30 10/13/24 12:56 DC 10/12/24 19:29 12.5 MG Meclizine HCl (ANTIvert 25 mg) 25 mg TID PRN PO DIZZINESS 10/13/24 13:00 11/12/24 12:59 Ondansetron HCl (zoFRAN 4MG INJ) 4 mg Q6H PRN IVP NAUSEA/VOMITING 10/11/24 14:30 11/10/24 14:29 DIAGNOSTICS / RADIOLOGY: [ ] ASSESSMENT: Syncopal episode x2, POA Heart failure, POA ruled out Hypertension, POA Rhabdomyolysis, mild, POA Chronic vertigo , POA Recent history of sinusitis treated with outpatient course of steroids and antibiotics, POA Deconditioning, POA History of multiple concussions- possible cause of vertigo to be ruled out . PLAN: Syncopal episode x2, POA His head CT, echocardiogram, ECG are normal. Cardiology consulted and said that there was no evidence to suggest polymyositis with a normal sedimentation rate. Creatinine kinase has been 743, 871 and 721. If they continued to trend down they would recommend no additional workup for this. From cardiology standpoint he can follow up with them as an outpatient and they will arrange for a two week event monitor. Neurology consulted and they said the most likely diagnosis is vestibulitis, an inflammation of the vestibular system secondary to chronic sinusitis and ear inf ections. Order MRI of the brain to rule out intracranial pathology, continue with scheduled ENT appointment on October 31 for further evaluation and management of vertigo and ear-related issues, educate patient on the likely vestibular origin of symptoms and the need for resolution of underlying infections for symptom improvement, advise against the use of Q-tips or other objects in the ear canal to prevent further injury Started on Meclizine. His orthostatic vitals are while supine BP is 128/78 and Pulse is 99, while sitting his BP is 133/108 and pulse is 116 and while standing BP is 163/115 and pulse is 131. Recheck vitals while lying down and standing. Heart failure, POA, ruled out Chest X-ray showed cardiomegaly. His echocardiogram is normal. Hypertension, POA Today is BP is 118/66. He continues on lisinopril. Rhabdomyolysis, mild, POA During kinase trending down from 871 to 721. His potassium, bicarbonate are normal. Continue lactated ringer. Will repeat his labs tomorrow. Abdominal ultrasound for possible fatty liver. PHYSICIAN STATEMENT I was present with the resident during the History and Physical exam and I have reviewed the resident's note. This case was discussed with the resident and I agree with the history, physical exam and medical decision making as documented. Additions/exceptions/observations were directly added to the notes. Onesimo Carrion MD, SYED M MD Oct 13, 2024 16:35
[2024-10-14] VITALS (8 sets, daily range): BP systolic 121–154; BP diastolic 70–97; PULSE 61–99; RESP 18–20; TEMP 97.7–98.2; O2SAT 97–99
[2024-10-14 06:22] LABS: NUCLEATED RED BLOOD CELLS 0.0 % (0.0-0.19); PLATELET COUNT (AUTO) 294.0 K/uL (130-400); RED BLOOD CELL COUNT(AUTO) 4.93 MIL/uL (4.50-6.20); RED CELL DISTRIBUTION WIDTH 12.4 % (11.0-15.5); WHITE BLOOD COUNT (AUTO) 8.3 K/uL (4.8-10.8)
[2024-10-14 06:45] LABS: ASPARTATE AMINOTRANSFERASE 23.0 U/L (10-37); CREATININE 1.0 mg/dL (0.5-1.3); GLOMERULAR FILTR. RATE CALC 95.0 mL/min (>90); GLUCOSE,RANDOM 82.0 mg/dL (70-105); SODIUM SERUM 138.0 mmol/L (136-145); TOTAL PROTEIN, SERUM 6.5 g/dL (6.0-8.3); UREA NITROGEN, BLOOD 15.0 mg/dL (7-18)
[2024-10-14 06:50] LABS: CREATINE KINASE, TOTAL 596.0 U/L (21-232)
--- NOTE | 2024-10-14 14:05 | HMCIMG ---
EXAM: MR Brain without Intravenous Contrast. CLINICAL HISTORY: PATIENT IS ALLERGIC TO CONTRAST, H/O CHRONIC DIZZINESS, SYNCOPE,CONCUSSION report Pending for discharge and treatment planning TECHNIQUE: Multisequence, multiplanar magnetic resonance images acquired of the brain without intravenous contrast. CONTRAST: CT head without contrast 10/11/2024 FINDINGS: BRAIN: No restricted diffusion to indicate acute infarction. No intracranial mass or hemorrhage. No midline shift or extra-axial fluid collection. No cerebellar tonsillar ectopia. No abnormal enhancement. The central arterial and venous flow voids are patent. Mild global atrophy VENTRICLES: No hydrocephalus. ORBITS: The orbits are normal. SINUSES AND MASTOIDS: The sinuses and mastoid air cells are clear. BONES: No acute fracture or aggressive appearing osseous lesion. IMPRESSION: 1. No acute intracranial findings. 2. Mild global atrophy. /[place]
--- NOTE | 2024-10-14 16:03 | HMCIMG ---
EXAM: US Duplex Bilateral Carotid and Vertebral Arteries. CLINICAL HISTORY: Dizziness. TECHNIQUE: Real-time ultrasound scan of the bilateral carotid and vertebral arteries, 2-D cobb scale, with color Doppler flow and spectral waveform analysis. Note: Per PQRS, velocity criteria are extrapolated from diameter data as defined by the Society of Radiologists in Ultrasound Consensus Conference (Radiology 2003; 229; 340-346). COMPARISON: None provided. FINDINGS: RIGHT COMMON CAROTID ARTERY: Peak systolic velocity of 101 cm/s. No occlusion or significant stenosis. RIGHT INTERNAL CAROTID ARTERY: Peak systolic velocity of 123 cm/s. ICA/CCA ratio 1.2. No occlusion or significant stenosis. Interpretation: ICA PSV <125 cm/s with ICA/CCA ratio <2.0 ? No hemodynamically significant stenosis (<50%). RIGHT EXTERNAL CAROTID ARTERY: Peak systolic velocity of 100 cm/s. No occlusion or significant stenosis. RIGHT VERTEBRAL ARTERY: Antegrade flow with peak systolic velocity of 53 cm/s. LEFT COMMON CAROTID ARTERY: Peak systolic velocity of 93 cm/s. No occlusion or significant stenosis. LEFT INTERNAL CAROTID ARTERY: Peak systolic velocity of 85 cm/s. ICA/CCA ratio 1.0. No occlusion or significant stenosis. Interpretation: ICA PSV <125 cm/s with ICA/CCA ratio <2.0 ? No hemodynamically significant stenosis (<50%). LEFT EXTERNAL CAROTID ARTERY: Peak systolic velocity of 120 cm/s. No occlusion or significant stenosis. LEFT VERTEBRAL ARTERY: Antegrade flow with peak systolic velocity of 48 cm/s. SOFT TISSUES: No incidental abnormalities. IMPRESSION: 1. No hemodynamically significant stenosis in either carotid system. 2. Bilateral vertebral arteries demonstrate normal antegrade flow. /[place]
--- NOTE | 2024-10-14 16:22 | HMCIMG ---
EXAM: US Abdomen Limited, Right Upper Quadrant. CLINICAL HISTORY: Fatty liver. TECHNIQUE: Real-time ultrasound of the right upper quadrant with image documentation. COMPARISON: None provided. FINDINGS: LIVER: The liver size is 17.2 cm. Echotexture and focal lesions were not assessed due to limited visualization. GALLBLADDER: The gallbladder wall thickness is 3 mm. No gallstones or pericholecystic fluid were noted. COMMON BILE DUCT: The common bile duct diameter is 4 mm, which is within normal limits. PANCREAS: The pancreas was partially visualized due to overlying bowel gas. No discrete mass was identified in the visualized portion. RIGHT KIDNEY: The right kidney size is 11.9 x 6.0 x 5.2 cm. Echogenicity and corticomedullary differentiation were not assessed due to limited views. IMPRESSION: 1. Limited exam due to abundant intestinal air, restricting full evaluation of abdominal organs. 2. No definite abnormalities seen in the visualized portions. 3. Correlation with clinical findings and further imaging may be considered if symptoms persist. /[place]
[2024-10-14] MEDS ORDERED: MECL-226 PO (18:19)
--- NOTE | 2024-10-14 18:26 | NUR ---
DISCHARGE PATIENT RECEIVED DISCHARGE ORDERS FROM DR PEREZ/ DR ABAD. PATIENT INSTRUCTED TO CONTINUE DISCHARGE MEDICATIONS, GO TO SCHEDULED ENT APPOINTMENT, AND READ DIAGNOSIS EDUCATION PROVIDED. PATIENT'S IV PULLED OUT AND SITE IS CLEAN AND BANDAGED. PATIENT STATED HE UNDERSTOOD DISCHARGE INSTRUCTIONS. JUST PENDING RIDE FROM HIS .
--- NOTE | 2024-10-14 19:17 | DS ---
Discharge Summary Hospital Course Summary: Patient Information: *Name: Serafin Acevedo *Date of : 1980 *Admission Date: 10/11/2024 *Discharge Date: 10/14/2024 Admitting Diagnosis: Syncopal Episodes Course in Hospital: The patient is 44-year-old male with underlying history of hypertension, history of chronic vertigo which has ongoing for the past two months, who presented to the ER for further evaluation of suspected syncope. Patient stated that he was in the kitchen in sitting on his wheelchair when he felt little bit of nausea and palpitations which has followed by syncopal episode. Patient stated that he may have had the episode for about 15 seconds. When he woke up, he found his phone on the floor, about 10 minutes later, he had another episode of syncope. Patient denied previous syncopal episode and denied any previous history of cardiac arrhythmia or SC. Patient reports that he has been having issues with chronic vertiginous symptoms for the past two months. He stated that he feels as if he is swaying rather than surroundings are spinning .This feeling is prominent with change in head positions, but also happen when he is resting and last for couple of seconds. He consulted a neurologist in [place]-unknown medical records. Recently had a CT maxillofacial done and was told he had sinusitis. He was prescribed a course of Medrol Dosepak as well as Augmentin. The neurologist also thought that he may have possible vestibular migraine/ocular migraine. He has history of pressure involving the left eye for several months now. Patient has noticed that over the last two months, he will gets tired easily with exertional activities, he has noticed some subjective weakness of the lower extremity as well. He uses a wheel chair because of dizziness. He has tinnitus in the left ear since 1 year. Recently underwent ear lavage for ear wax at that time they ruptured his left ear drum since then he is having hearing loss. He is a chronic smoker and he started smoking at the age of 9. Also he used to vape. He also reported of having dyspnea on exertion His PCP ordered a sleep study to rule out sleep apnea and he is waiting for the results. . On presentation to the hospital, patient was noted to be afebrile with T-max of 98.4 F, heart rate of 105, blood pressure of 129/61. Labs on presentation showed WBC count to be 1400, hemoglobin 15.8, platelet count of 203628. BMP remarkable for sodium 137, potassium 4.4, BUN of 18, creatinine 1.0, total CK was noted to be mildly high at 743 and liver enzymes were noted to be normal. Chest x-ray Showed no acute infiltrates with possible cardiomegaly. Patient will be admitted for further evaluation of syncopal episode. During the admission the patient's head CT, abdominal ultrasound, carotid artery ultrasound and brain MRI were nonsignificant for any pathology. Electrocardiography showed LVEF of 50-55%. Creatinine kinase showed downward trend during the course of admission. Neurology saw the patient and recommended the patient continue with scheduled ENT appointment on October 31 and advise against the use of Q-tips or any other objects in the ear canal to prevent further injury. 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 Acevedo is a 44-year-old male with a history of multiple concussions presenting with chronic vertigo, dizziness, and recent episodes of loss of consciousness. Chronic peripheral vertigo Assessment: Patient reports a one-year history of progressively worsening vertigo and dizziness, now constant throughout the day. Symptoms are exacerbated by head movement, described as feeling like a "bowl of water being shaken." Associated symptoms include brain fog, blurry vision, and occasional double vision upon waking. 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 CT scan of sinuses revealed congestion. Patient was treated with antibiotics and steroids for seven days, followed by steroid ear drops for otitis externa. Symptoms have worsened since treatment, with the addition of tinnitus. Given the patient's history of ear infections and recent treatments, the most likely diagnosis is vestibulitis, an inflammation of the vestibular system secondary to chronic sinusitis and ear infections. Plan: - Order MRI of the brain to rule out intracranial pathology - Continue with scheduled ENT appointment on October 31 for further evaluation and management of vertigo and ear-related issues - Educate patient on the likely vestibular origin of symptoms and the need for resolution of underlying infections for symptom improvement - Advise against the use of Q-tips or other objects in the ear canal to prevent further injury Vasovagal syncope Assessment: Patient reports two recent episodes of loss of consciousness, each lasting a few seconds. The episodes occurred while the patient was seated and were accompanied by feelings of panic. Given the context of severe vertigo and associated anxiety, these episodes are likely vasovagal syncope triggered by the patient's vestibular symptoms and anxiety response. Plan: - Educate patient on the relationship between vertigo, anxiety, and syncope - Instruct patient on relaxation techniques and proper breathing to prevent hyperventilation and potential respiratory alkalosis - Advise patient to change positions slowly and avoid prolonged standing to prevent syncope Anxiety related to vestibular symptoms Assessment: Patient experiences anxiety symptoms including panic, cold sweats, and a sensation of trembling in response to severe vertigo episodes. These symptoms are consistent with a psychological response to the distressing nature of vestibular dysfunction. 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 While post-concussion syndrome can cause symptoms simil ar to those the patient is experiencing, the current presentation is more likely related to recent ear and sinus infections. Plan: - Monitor for any cognitive symptoms that may be related to previous concussions - Include assessment of cognitive function in neurological follow-up if MRI results are negative Procedure(s): PATIENT: SERAFIN ACEVEDO MR#: [id number] : 1980 SEX: M AGE: 44 LOCATION: [facility] ORDER 1130 STATUS: [facility] REPORT#: [id number] SERVICE 1128 REASON: SYNCOPE ORDERING PHYSICIAN: TIFFANIE FIGUEROA DO PROCEDURE: CXR1VW - CHEST 1VW EXAM: CR Chest, 1 View. CLINICAL HISTORY: SYNCOPE COMPARISON: None provided. FINDINGS: LUNGS: The lungs show no infiltrate or other acute finding. PLEURAL SPACES: No evidence of pleural effusion or pneumothorax. MEDIASTINUM: The heart is enlarged. BONES: No acute osseous abnormality. IMPRESSION: Cardiomegaly. Clear lungs. /[place] DICTATED BY: MAURA ADAMS MD DATE: 10/11/241337 ELECTRONICALLY SIGNED BY: MAURA ADAMS MD DATE: 10/11/241337 PATIENT: SERAFIN ACEVEDO MR#: [id number] : 1980 SEX: M AGE: 44 LOCATION: [facility] ORDER 1130 STATUS: REG ER REPORT#: [id number] SERVICE 112 REASON: dizzy/syncope ORDERING PHYSICIAN: TIFFANIE FIGUEROA DO PROCEDURE: HEAD WO - CT HEAD/BRAIN W/O CONTRAST EXAM: CT Head Without IV contrast. CLINICAL HISTORY: dizzy/syncope TECHNIQUE: Axial computed tomography images of the head/brain without intravenous contrast. COMPARISON: None provided. FINDINGS: BRAIN: No evidence of acute hemorrhage. No mass lesion. No CT evidence for acute territorial infarct. No midline shift or extra-axial collections. VENTRICLES: No hydrocephalus. ORBITS: The orbits are unremarkable. SINUSES AND MASTOIDS: The paranasal sinuses and mastoid air cells are clear. BONES: No fracture. SOFT TISSUES: Unremarkable. IMPRESSION: 1. No acute intracranial findings. /[place] DICTATED BY: MAURA ADAMS MD DATE: 10/11/24 135 ELECTRONICALLY SIGNED BY: MAURA ADAMS MD DATE: 10/11/24 135 PATIENT: SERAFIN ACEVEDO MR#: [id number] : 1980 SEX: M AGE: 44 LOCATION: [facility] ORDER 1409 STATUS: ADM IN REPORT#: [id number] SERVICE 1406 REASON: syncope, r/o heart failure, Dr. Collier to read ORDERING PHYSICIAN: GAIL MENJIVAR MD PROCEDURE: ECHO CMP - ECHO 2-D COMPLETE APPROVED REPORT EXAM: Two-dimensional and M-mode echocardiogram with Doppler and color Doppler. Study Details: HTN INDICATION ICD: r/o heart failure , D Syncope 2D Dimensions RVDd 3.8 cm LVEF(%) 85.0 (>50%) LVED Vol(simp.) 103.5 mL IVSd 1.0 (0.7-1.1cm) FS(%) 55 % LVES Vol(simp.) 48.4 mL LVDd 5.4 (3.8-5.6cm) LA (2D) 4.2 (1.6-4.0cm) LVEF(%, simp.) 53 % PWd 0.8 (0.7-1.1cm) Ao Root(2D) 3.4 (2.0-3.7cm) LA ESV INDEX (BP) 13.46 mL/m2 IVSs 1.4 cm LVOT diam 2.3 (1.8-2.4cm) LVDs 2.5 (2.5-4.0cm) PWs 1.8 cm Deformation Strain Apical 4 13.3 % Apical 2 13.1 % Apical 3 13.1 % Global Strain 13.2 % M-Mode Dimensions EPSS 0.3 cm LA (MM) 4.5 (1.6-4.0cm) Ao Root(MM) 3.0 (2.0-3.7cm) Aortic Valve AoV Vmax 1.3 m/s Ao Peak GR 7.0 mmHg LVOT Vmax 1.0 m/s AoV VTI 0.2 m Ao Mean GR 3.6 mmHg LVOT VTI 0.20 m RUDY (VMAX) 3.34 cm2 RUDY (VTI) 3.8 cm2 Mitral Valve MV E Vmax 64.2 cm/s DECEL Time 158 ms MV A Vmax 62.8 cm/s P 1/2 T 47 ms E/A ratio 1.0 MVA (PHT) 4.7 cm2 TDI E/E' Medial 8.7 E/E' Lateral 7.4 Medial E' Peak V 7.39 cm/s Lateral E' Peak V 8.62 cm/s Pulmonary Valve PV Vmax 1.5 m/s PV VTI 0.32 m PV Mean GR 5.6 mmHg PV Peak GR 9.6 mmHg Left Ventricle The left ventricle is normal size. There is normal LV segmental wall motion. There is normal left ventricular wall thickness. LVEF is 50-55%. The left ventricular diastolic function is normal. Right Ventricle The right ventricle is normal size. The right ventricular systolic function is normal. Atria The left atrium size is normal. The interatrial septum is intact with no evidence for an atrial septal defect. The right atrium size is normal. Aortic Valve Aortic valve is trileaflet. The aortic valve is normal in structure and function. No aortic regurgitation is present. There is no aortic valvular stenosis. Mitral Valve The mitral valve is normal in structure. There is no evidence of significant mitral regurgitation. There is no mitral valve stenosis. Tricuspid Valve The tricuspid valve is normal in structure. There is no tricuspid valve regurgitation noted. Pulmonic Valve The pulmonary valve is normal in structure. There is no pulmonic valvular regurgitation. Great Vessels The aortic root is normal in size. The ascending aorta is normal in size. The IVC is normal in size and collapses >50% with inspiration. Pericardium There is no pericardial effusion. Conclusion There is normal left ventricular wall thickness. LVEF is 50-55%. There is normal LV segmental wall motion. DICTATED BY: SANG COLLIER MD DATE: 10/12/24 0903 ELECTRONICALLY SIGNED BY: SANG COLLIER MD DATE: 10/12/24 1225 PATIENT: SERAFIN ACEVEDO MR#: [id number] : 1980 SEX: M AGE: 44 LOCATION: [facility] ORDER 1629 STATUS: ADM IN REPORT#: [id number] SERVICE 1627 REASON: Fatty Liver ORDERING PHYSICIAN: ANTELMO ABDA MD PROCEDURE: ABDRUQLTD - US ABDOMINAL RUQ\\LTD EXAM: US Abdomen Limited, Right Upper Quadrant. CLINICAL HISTORY: Fatty liver. TECHNIQUE: Real-time ultrasound of the right upper quadrant with image documentation. COMPARISON: None provided. FINDINGS: LIVER: The liver size is 17.2 cm. Echotexture and focal lesions were not assessed due to limited visualization. GALLBLADDER: The gallbladder wall thickness is 3 mm. No gallstones or pericholecystic fluid were noted. COMMON BILE DUCT: The common bile duct diameter is 4 mm, which is within normal limits. PANCREAS: The pancreas was partially visualized due to overlying bowel gas. No discrete mass was identified in the visualized portion. RIGHT KIDNEY: The right kidney size is 11.9 x 6.0 x 5.2 cm. Echogenicity and corticomedullary differentiation were not assessed due to limited views. IMPRESSION: 1. Limited exam due to abundant intestinal air, restricting full evaluation of abdominal organs. 2. No definite abnormalities seen in the visualized portions. 3. Correlation with clinical findings and further imaging may be considered if symptoms persist. /[place] DICTATED BY: SHAWNEE BIRMINGHAM MD DATE: 10/14/241721 ELECTRONICALLY SIGNED BY: SHAWNEE BIRMINGHAM MD DATE: 10/14/241721 PATIENT: SERAFIN ACEVEDO MR#: [id number] : 1980 SEX: M AGE: 44 LOCATION: [facility] ORDER 04 STATUS: ADM IN REPORT#: [id number] SERVICE 120 REASON: Dizzines ORDERING PHYSICIAN: ANTELMO ABAD MD PROCEDURE: CAROTID - US CAROTID DUPLEX EXAM: US Duplex Bilateral Carotid and Vertebral Arteries. CLINICAL HISTORY: Dizziness. TECHNIQUE: Real-time ultrasound scan of the bilateral carotid and vertebral arteries, 2-D cobb scale, with color Doppler flow and spectral waveform analysis. Note: Per PQRS, velocity criteria are extrapolated from diameter data as defined by the Society of Radiologists in Ultrasound Consensus Conference (Radiology 2003; 229; 340-346). COMPARISON: None provided. FINDINGS: RIGHT COMMON CAROTID ARTERY: Peak systolic velocity of 101 cm/s. No occlusion or significant stenosis. RIGHT INTERNAL CAROTID ARTERY: Peak systolic velocity of 123 cm/s. ICA/CCA ratio 1.2. No occlusion or significant stenosis. Interpretation: ICA PSV <125 cm/s with ICA/CCA ratio <2.0 ? No hemodynamically significant stenosis (<50%). RIGHT EXTERNAL CAROTID ARTERY: Peak systolic velocity of 100 cm/s. No occlusion or significant stenosis. RIGHT VERTEBRAL ARTERY: Antegrade flow with peak systolic velocity of 53 cm/s. LEFT COMMON CAROTID ARTERY: Peak systolic velocity of 93 cm/s. No occlusion or significant stenosis. LEFT INTERNAL CAROTID ARTERY: Peak systolic velocity of 85 cm/s. ICA/CCA ratio 1.0. No occlusion or significant stenosis. Interpretation: ICA PSV <125 cm/s with ICA/CCA ratio <2.0 ? No hemodynamically significant stenosis (<50%). LEFT EXTERNAL CAROTID ARTERY: Peak systolic velocity of 120 cm/s. No occlusion or significant stenosis. LEFT VERTEBRAL ARTERY: Antegrade flow with peak systolic velocity of 48 cm/s. SOFT TISSUES: No incidental abnormalities. IMPRESSION: 1. No hemodynamically significant stenosis in either carotid system. 2. Bilateral vertebral arteries demonstrate normal antegrade flow. /[place] DICTATED BY: SHAWNEE BIRMINGHAM MD DATE: 10/14/241700 ELECTRONICALLY SIGNED BY: SHAWNEE BIRMINGHAM MD DATE: 10/14/241700 PATIENT: SERAFIN ACEVEDO MR#: [id number] : 1980 SEX: M AGE: 44 LOCATION: [facility] ORDER 33 STATUS: ADM IN REPORT#: [id number] SERVICE 24 REASON: PATIENT IS ALLERGIC TO CONTRAST, H/O CHRONIC DIZZINESS, SYNCO PE,CONCUSSION ORDERING PHYSICIAN: ROSA LOPEZ MD PROCEDURE: BRAIN WO - MR BRAIN WO CON EXAM: MR Brain without Intravenous Contrast. CLINICAL HISTORY: PATIENT IS ALLERGIC TO CONTRAST, H/O CHRONIC DIZZINESS, SYNCOPE,CONCUSSION report Pending for discharge and treatment planning TECHNIQUE: Multisequence, multiplanar magnetic resonance images acquired of the brain without intravenous contrast. CONTRAST: CT head without contrast 10/11/2024 FINDINGS: BRAIN: No restricted diffusion to indicate acute infarction. No intracranial mass or hemorrhage. No midline shift or extra-axial fluid collection. No cerebellar tonsillar ectopia. No abnormal enhancement. The central arterial and venous flow voids are patent. Mild global atrophy VENTRICLES: No hydrocephalus. ORBITS: The orbits are normal. SINUSES AND MASTOIDS: The sinuses and mastoid air cells are clear. BONES: No acute fracture or aggressive appearing osseous lesion. IMPRESSION: 1. No acute intracranial findings. 2. Mild global atrophy. /[place] DICTATED BY: AARON JEWELL MD DATE: 10/14/241503 ELECTRONICALLY SIGNED BY: AARON JEWELL MD DATE: 10/14/241503 Assessment/Plan: ASSESSMENT: Syncopal episode x2, POA Heart failure, POA ruled out Hypertension, POA Rhabdomyolysis, mild, POA Chronic vertigo , POA Recent history of sinusitis treated with outpatient course of steroids and antibiotics, POA Deconditioning, POA History of multiple concussions- possible cause of vertigo to be ruled out . Discharge Instructions: *Follow up with your primary care physician in 2 - 3 days after discharge. * Follow up with the established ENT appointment *Continue all medications as prescribed. Do not discontinue or change dosages without consulting your PCP. *Gradually resume normal activities as tolerated. *Continue a balanced diet . Reduce salt intake to help manage BP. *Seek immediate medical attention if you experience chest pain, SOB or severe headache. Home Medications: Active Scripts Meclizine HCl (Meclizine HCl) 12.5 Mg Tablet, 1 TAB PO TID for dizziness for 30 Days, #90 TAB 0 Refills Prov:NIKHIL PEREZ MD 10/14/24 Reported Medications Lisinopril (Lisinopril) 20 Mg Tablet, 1.5 TAB PO DAILY for 30 Days, #30 TAB 0 Refills 10/11/24 New Medications: Meclizine HCl (Meclizine HCl) 12.5 Mg Tablet 1 TAB PO TID for dizziness for 30 Days, #90 TAB 0 Refills Continued Medications: Lisinopril (Lisinopril) 20 Mg Tablet 1.5 TAB PO DAILY for 30 Days, #30 TAB 0 Refills Time spent arranging discharge: 1-30 minutes PHYSICIAN STATEMENT I was present with the resident during the History and Physical exam and I have reviewed the resident's note. This case was discussed with the resident and I agree with the history, physical exam and medical decision making as documented. Additions/exceptions/observations were directly added to the notes. Onesimo Carrion MD, SYED M MD Oct 14, 2024 19:16
[2024-10-15] MEDS ORDERED: LISINOPRIL 20 MG TABLET PO SCH (09:00)
[2024-10-15] MEDS ORDERED: LISINOPRIL 10 MG TABLET PO SCH (09:00)
== END 2024-10-14 18:45 | disposition home or self-care (01) | DRG 149 ==
LOC: EDH 11:18 → EDHIP 14:05 → 4BH 16:15
PROVIDERS: ADMIT Internal Medicine; ATTEND Internal Medicine
DX: H83.09 Labyrinthitis, unspecified ear (principal); M62.82 Rhabdomyolysis; R55 Syncope and collapse; E66.9 Obesity, unspecified; I10 Essential (primary) hypertension; F07.81 Postconcussional syndrome; I51.7 Cardiomegaly; G43.909 Migraine, unspecified, not intractable, without status migrainosus; F41.0 Panic disorder [episodic paroxysmal anxiety]; H91.92 Unspecified hearing loss, left ear; H93.12 Tinnitus, left ear; J32.9 Chronic sinusitis, unspecified; Z80.9 Family history of malignant neoplasm, unspecified; Z82.49 Family history of ischemic heart disease and other diseases of the circulatory system; Z87.820 Personal history of traumatic brain injury; Z87.891 Personal history of nicotine dependence; Z79.899 Other long term (current) drug therapy; Z88.8 Allergy status to other drugs, medicaments and biological substances
CPT/HCPCS: 36415; 70450; 70551; 71045; 76705; 80048; 80053; 80076; 80305; 81003; 82550; 82948; 83036; 83615; 83735; 83880; 84146; 84443; 84484; 85025; 85027; 85378; 85610; 85651; 85730; 86038; 86140; 86215; 86235; 87635; 87804; 93005; 93306; 93356; 93880; 94664; 96360; 96361; 99285; G0378; J7120

== ENCOUNTER 2024-10-27 19:43 | Emergency (ER) | payer OTHER ==
[~2024-10-27] VITALS: Ht 180.3 cm; Wt 122.5 kg
[~2024-10-27 19:43] MED LIST: LISI20TA24 PO; MECL-226 PO
--- NOTE | 2024-10-27 19:55 | ERN ---
General Chief Complaint: Dizzy/Light Headed Stated Complaint: DIZZINESS, FEELING FLUSH Time Seen by MD: 19:46 History of Present Illness Initial Comments 44-year-old male coming in with feelings of dizziness weakness chills cold sweats mild anxiety and feeling shaky. 44-year-old male recently admitted to the hospital with a diagnosis of vertigo or vestibular migraine/ocular migraine. He has been diagnosed in the past with cardiomegaly based on a chest x-ray but an echocardiogram was negative for left ventricular hypertrophy. He has had an MRI of his brain, a CT scan of his brain, ultrasound of his vertebral and carotid arteries, and a CT scan of his max facial sinuses. All of the studies has been negative. He does have a history of a perforated eardrum from cerumen extraction on the left. Patient states that the symptoms he has now are different from his vertigo symptoms. Allergies: Coded Allergies: iodine (Unverified Allergy, Intermediate, HIVES, 10/11/24) metoclopramide (Unverified Allergy, Intermediate, RASH, 10/11/24) Home Meds Active Scripts Meclizine HCl (Meclizine HCl) 12.5 Mg Tablet, 1 TAB PO TID for dizziness for 30 Days, #90 TAB 0 Refills Prov:NIKHIL PEREZ MD 10/14/24 Reported Medications Lisinopril (Lisinopril) 20 Mg Tablet, 1.5 TAB PO DAILY for 30 Days, #30 TAB 0 Refills 10/11/24 Past Medical History Past Medical History: Hypertension, Other Medical History Other: ASCITES Past Surgical History: Other Constitutional: (+) chills EENTM: (+) blurred vision Respiratory: (-) cough, (-) orthopnea, (-) short of breath, (-) stridor, (-) wheezing, (-) other documentation Cardiovascular: (+) chest pain Gastrointestinal/Abdominal: (-) nausea, (-) vomiting, (-) diarrhea, (-) abdominal pain, (-) abdominal distention, (-) constipation, (-) rectal bleeding, (-) dark stool/melena, (-) other documentation Genitourinary: (-) penile discharge, (-) dysuria, (-) frequency, (-) hematuria, (-) pain, (-) other documentation Musculoskeletal: (-) Neck pain, (-) back pain, (-) Flank Pain, (-) joint pain, (-) joint swelling, (-) muscle pain, (-) muscle stiffness, (-) gout, (-) other documentation Neuro: (-) altered mental status, (-) headache, (-) syncope, (-) paralysis, (-) numbness, (-) seizure, (-) pre-existing deficit, (-) tremors, (-) weakness, (-) dizziness, (-) slurred speech, (-) vertigo, (-) other documentation Physical Exam General Appearance: (+) mild distress Orientation: (+) alert, (+) oriented x 3 Head/Face Trauma: No Eye: bilateral eye normal inspection, bilateral eye PERRL, bilateral eye EOMI Ear, Nose, Throat: (+) hearing grossly normal, (+) normal ENT inspection, (+) moist mucous membraine Neck: (+) normal inspection, (+) supple, (+) full range of motion Respiratory: (+) chest non-tender, (+) lungs clear, (+) well ventilated Heart: (+) regular, (+) no gallop Vascular: (+) no edema, (+) normal peripheral pulse Gastrointestinal: (+) soft, (+) non-tender Results Laboratory and Microbiology Lab and Micro Result Laboratory Tests Test 10/27/24 20:05 10/27/24 20:22 White Blood Count 9.1 K/uL (4.8-10.8) Red Blood Count 5.34 MIL/uL (4.50-6.20) Hemoglobin 15.8 g/dL (14.0-18.0) Hematocrit 45.6 % (42-54) Mean Corpuscular Volume 85.4 fL (79-99) Mean Corpuscular Hemoglobin 29.6 pg (27.0-33.0) Mean Corpuscular Hemoglobin Concent 34.6 g/dL (32.0-36.0) Red Cell Distribution Width 12.4 % (11.0-15.5) Platelet Count 358 K/uL (130-400) Mean Platelet Volume 9.9 fL (7.5-10.5) Immature Granulocyte % (Auto) 0.4 % (0-1) Neutrophils (%) (Auto) 74.2 % (40.0-77.0) Lymphocytes (%) (Auto) 18.1 % (21.0-51.0) L Monocytes (%) (Auto) 5.9 % (3.0-13.0) Eosinophils (%) (Auto) 1.1 % (0.0-8.0) Basophils (%) (Auto) 0.3 % (0.0-5.0) Neutrophils # (Auto) 6.8 K/uL (1.8-7.7) Lymphocytes # (Auto) 1.7 K/uL (1.0-4.8) Monocytes # (Auto) 0.5 K/uL (0.1-1.0) Eosinophils # (Auto) 0.10 K/uL (0.00-0.70) Basophils # (Auto) 0.03 K/uL (0.00-0.20) Absolute Immature Granulocyte (auto 0.04 K/uL (0-1) Nucleated Red Blood Cells 0.0 % (0.0-0.19) Sodium Level 139 mmol/L (136-145) Potassium Level 3.8 mmol/L (3.5-5.1) Chloride Level 103 mmol/L (101-111) Carbon Dioxide Level 25 mmol/L (21-32) Blood Urea Nitrogen 15 mg/dL (7-18) Creatinine 1.0 mg/dL (0.5-1.3) Glomerular Filtration Rate Calc 95 mL/min (>90) Random Glucose 103 mg/dL (70-105) Total Calcium 8.9 mg/dL (8.5-10.1) Total Bilirubin 0.4 mg/dL (0.2-1.0) Aspartate Amino Transf (AST/SGOT) 22 U/L (10-37) Alanine Aminotransferase (ALT/SGPT) 67 U/L (12-78) Alkaline Phosphatase 73 U/L (50-136) Troponin I High Sensitivity 5 ng/L (4-75) B-Type Natriuretic Peptide < 5 pg/mL (0-100) Total Protein 7.3 g/dL (6.0-8.3) Albumin 3.8 g/dL (3.5-5.0) Urine Color YELLOW (YELLOW) Urine Appearance CLEAR (CLEAR) Urine pH 5.5 (5.0-8.0) Urine Specific Coleman 1.029 (1.001-1.031) Urine Protein NEGATIVE mg/dL (NEGATIVE) Urine Glucose (UA) NEGATIVE mg/dL (NEGATIVE) Urine Ketones NEGATIVE mg/dL (NEGATIVE) Urine Occult Blood SMALL (NEGATIVE) H Urine Nitrate NEGATIVE (NEGATIVE) Urine Bilirubin NEGATIVE mg/dL (NEGATIVE) Urine Urobilinogen 0.2 mg/dL (0.2-1.0) Urine Leukocyte Esterase NEGATIVE [place]/uL Urine RBC 2-5 /HPF (0-1) H Urine WBC 0-1 /HPF (0-1) Urine Squamous Epithelial Cells RARE /HPF (0-2) Urine Bacteria None /HPF (None Seen) MDM I will start the workup simple with fluids and labs. And then move onto imaging if necessary. MDM: Differential diagnosis: Recurrent vitals vertigo, dehydration, labyrinthitis, sinus infection, urinary tract infection, Rationale: Tests considered and ordered secondary to shared decision making include: Previous outside records reviewed: Old ER visits. Risk of complication and/or morbidity or mortality of patient management: None Medications-Per medication reconciliation Need for hospitalization: Patient does meet criteria for hospitalization. Need for emergency major/minor surgery: No There are no social concerns with this patient. Prescription drug management Prescriptions will include symptomatic care Patient's prior external medical records from other ER visits were reviewed by me as indicated. Prior testing and results from previous visits were reviewed. Prior tests were taken into account with medical decision making and resource u tilization, independent historian/historians were used to obtain complete medical history. I independently interpreted the test that were performed, results were reviewed by me and considered findings on radiology if ordered. Patient's laboratory analysis has come back normal. No overt signs of dehydration. Patient does say that the fluid is making him feel a little bit better. Asking him specifically about his lightheadedness he describes that he feels like a bowl of water is slashing back and forth. This is the same description he gave during his prior hospital admission. Patient states that meclizine has helped him. He was given an outpatient prescription for but he had to leave town and by the time he came back the prescription has been notified. I will discharge him on meclizine and then follow-up with his primary care physician to finish the workup for his vestibular migraines. ED Course Orders Procedure Category Date Status Time 12 Lead Ekg Tracing- EKG 9/8/25 Logged Technical 19:46 B-Type Natriuretic LAB 10/27/24 Complete Peptide 19:46 Comprehensive LAB 10/27/24 Complete Metabolic Panel 19:46 Cbc With Differential LAB 10/27/24 Complete 19:46 Troponin I High LAB 10/27/24 Complete Sensitivity 19:46 Urinalysis Profile LAB 10/27/24 Complete 19:46 Chest 1vw RAD 10/27/24 Resulted 19:46 Lactated Ringers PHA 10/27/24 Complete 1000ml (Lactated 19:46 Meclizine Hcl 25 Mg PHA 10/27/24 In Process (Antivert 25 Mg) 21:30 Current Medications Medications (Trade) Dose Ordered Sig/Alejandro Route PRN Reason Start Time Stop Time Status Last Admin Dose Admin Lactated Ringer's (Lactated Ringers 1000ml) 1,000 ml BOLUS STAT IV 10/27/24 19:46 10/27/24 19:49 DC 10/27/24 20:20 Meclizine HCl (ANTIvert 25 mg) 25 mg ONCE ONCE PO 10/27/24 21:30 10/27/24 21:31 Vital Signs Date Time Temp Pulse Resp B/P (MAP) Pulse Ox O2 Delivery O2 Flow Rate FiO2 10/27/24 20:05 98.4 94 15 139/91 98 Room Air* 0 21 10/27/24 19:44 98.1 90 16 140/89 96 Room Air 0 DX & DISP Disposition: Discharge Departure Impression: Primary Impression: Vestibular migraine Condition: Stable Scripts Meclizine HCl (Meclizine HCl) 12.5 Mg Tablet 1 TAB PO BID for dizziness for 30 Days, #60 TAB 0 Refills Prov: JOEY MADRID MD 10/27/24 Additional Instructions: Please continue to see your primary care physician and your neurologist to complete the workup of your vestibular ocular migraines. I have written a prescription for meclizine. You may have been dehydrated I am not sure. Please drink enough water so that your urine runs clear at least once a day, especially in his hot weather. Referrals: SELF,REFERRAL (PCP) JOEY MADRID MD Oct 27, 2024 19:55
[2024-10-27 20:05] VITALS: BP 139/91; PULSE 94; RESP 15; TEMP 98.4; O2SAT 98
[2024-10-27 20:20] LABS: IMMATURE GRANULOCYTE ABSOLUTE 0.04 K/uL (0-1); NUCLEATED RED BLOOD CELLS 0.0 % (0.0-0.19); PLATELET COUNT (AUTO) 358 K/uL (130-400); RED BLOOD CELL COUNT(AUTO) 5.34 MIL/uL (4.50-6.20); RED CELL DISTRIBUTION WIDTH 12.4 % (11.0-15.5); WHITE BLOOD COUNT (AUTO) 9.1 K/uL (4.8-10.8)
[2024-10-27] MEDS: LACTATED RINGERS 1000ML IV STA (20:20)
[2024-10-27 20:32] LABS: APPEARANCE,URINE CLEAR (CLEAR); GLUCOSE, URINE (UA) NEGATIVE (NEGATIVE); LEUKOCYTE ESTERASE ,URINE NEGATIVE Leu/uL (NEGATIVE); NITRATE,URINE NEGATIVE (NEGATIVE); OCCULT BLOOD,URINE SMALL (NEGATIVE)
[2024-10-27 20:32] LABS: CREATININE 1.0 mg/dL (0.5-1.3); GLOMERULAR FILTR. RATE CALC 95.0 mL/min (>90); GLUCOSE,RANDOM 103.0 mg/dL (70-105); SODIUM SERUM 139.0 mmol/L (136-145); UREA NITROGEN, BLOOD 15.0 mg/dL (7-18)
[2024-10-27 20:35] LABS: ADD UA MICROSCOPIC YES
[2024-10-27 20:37] LABS: ASPARTATE AMINOTRANSFERASE 22.0 U/L (10-37); TOTAL PROTEIN, SERUM 7.3 g/dL (6.0-8.3)
[2024-10-27 20:39] LABS: SQUAMOUS EPITHELIAL CELL,UR RARE /HPF (0-2)
--- NOTE | 2024-10-27 21:16 | HMCIMG ---
EXAM: XR Chest, 1 View. CLINICAL HISTORY: 44 year old male with cardiomegaly. COMPARISON: None provided. FINDINGS: LUNGS: No consolidation. PLEURAL SPACES: No pleural effusion or pneumothorax. HEART: The heart size is abnormal, demonstrating cardiomegaly. BONES: No acute osseous abnormality. IMPRESSION: 1. Cardiomegaly. /[place]
[2024-10-27] MEDS ORDERED: MECL-226 PO (21:29)
--- NOTE | 2024-10-27 21:49 | EKG ---
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
== END 2024-10-27 21:59 | disposition home or self-care (01) ==
LOC: EDH 19:43
DX: G43.909 Migraine, unspecified, not intractable, without status migrainosus (principal); F41.9 Anxiety disorder, unspecified; I10 Essential (primary) hypertension; Z79.899 Other long term (current) drug therapy; Z88.8 Allergy status to other drugs, medicaments and biological substances
CPT/HCPCS: 99285; 96360; 71045; 84484; 80053; 83880; 85025; 81001; 36415; 93005; J7120